=== PATIENT | female | born 1945 | race Caucasian/White ===

== ENCOUNTER 2020-05-29 10:24 | Outpatient (CLI) | payer MEDICARE, SELFPAY ==
--- NOTE | ~2020-05-29 | XR_ITS ---
XR knee LT 2V 05/29/2020 10:53 Indication: Left knee pain Procedure: 2 views left knee Comparison: 03/04/2019 Findings: Severe osteoarthritis of the left knee. No fracture or traumatic malalignment. Small joint effusion. No foreign bodies. Extensive vascular calcifications. Impression: 1: Severe osteoarthritis of the left knee. Reviewed, dictated and finalized at location B. IDE INDUSTRIAL SALES REPRESENTATIVE Impression: 1: Severe osteoarthritis of the left knee.
== END 2020-05-29 10:25 ==
PROVIDERS: PCP Family Medicine; Visit Provider Nurse Practitioner Family
DX: M25.562 Pain in left knee (principal); M17.12 Unilateral primary osteoarthritis, left knee
CPT/HCPCS: 73560

== ENCOUNTER 2021-05-25 15:53 | Outpatient (CLI) | payer MEDICARE, SELFPAY ==
--- NOTE | ~2021-05-25 | XR_ITS ---
EXAMINATION: XR knee LT min 4V DATE: 05/25/2021 16:28 INDICATION: Chronic left knee pain. TECHNIQUE: 4 views of left knee were obtained. COMPARISON: Left knee radiographs 05/29/2020 FINDINGS: Bone alignment is normal. No fracture. There is severe osteoarthritis of medial compartment and mild osteoarthritis of lateral and patellofemoral compartments. There is a moderate-sized knee j oint effusion. IMPRESSION: 1. Severe left knee osteoarthritis. 2. Moderate-sized left knee joint effusion. Reviewed, dictated and finalized at location A. ATOR
== END 2021-05-25 15:54 | disposition home or self-care (01) ==
LOC: ANHIMG 16:02
PROVIDERS: PCP Family Medicine; Visit Provider Nurse Practitioner Family
DX: M25.562 Pain in left knee (principal); M17.12 Unilateral primary osteoarthritis, left knee; M25.462 Effusion, left knee
CPT/HCPCS: 73564

== ENCOUNTER 2023-04-07 10:35 | Outpatient (CLI) | payer MEDICARE, SELFPAY ==
--- NOTE | ~2023-04-07 | US_ITS ---
EXAMINATION: US venous doppler LE RT DATE: 04/07/2023 11:15 INDICATION: Right lower limb pain TECHNIQUE: Laws scale images without and with compression and Doppler images of the right lower extre mity veins were obtained. COMPARISON: 04/26/2017 FINDINGS: The right common femoral vein, profunda femoral vein, femoral vein, popliteal vein, peronea l trunk, posterior tibial veins, and greater saphenous vein are patent. IMPRESSION: 1. Patent right lower extremity veins. No evidence of deep venous thrombosis. Reviewed, dictated and finalized at location B.
[2023-04-07 11:52] LABS: Basophils Absolute Auto 0.1 K/mm3 (0.0-0.1); Basophils Percent Auto 0.8 % (0.2-1.2); Eosinophils Absolute Auto 0.3 K/mm3 (0-0.3); Eosinophils Percent Auto 5.4 % (0-4.4); Hematocrit 37.4 % (37.0-47.0); Hemoglobin 11.5 g/dL (12.0-15.0); Immature Granulocyte Absolute 0.02 K/mm3 (0.00-0.031); Immature Granulocyte Percent A 0.3 % (0-0.5); Lymphocytes Absolute Auto 1.52 K/mm3 (0.9-3.2); Lymphocytes Percent Auto 24.4 % (18.3-44.2); Mean Corpuscular HGB Conc 30.7 g/dl (32-36); Mean Corpuscular Hemoglobin 30.2 pg (26-34); Mean Corpuscular Volume 98.2 fl (80-100); Mean Platelet Volume 9.8 fl (7.4-10.4); Monocytes Absolute Auto 0.4 K/mm3 (0.1-0.6); Monocytes Percent Auto 6.7 % (2.6-8.5); Neutrophils Absolute Auto 3.9 K/mm3 (1.3-6.7); Neutrophils Percent Auto 62.4 % (45.5-73.1); Platelet Count Result 187 k/mm3 (150-375); Red Blood Count 3.81 M/mm3 (4.2-5.4); Red Cell Distribution Width 13.6 % (11.5-14.5); White Blood Count 6.2 K/mm3 (4.5-10.0)
[2023-04-07 11:56] LABS: INR 1.2; Prothrombin Time 15.7 Seconds (11.1-14.7)
[2023-04-07 11:57] LABS: Partial Thromboplastin Time 27.9 SECONDS (22.3-36.8)
[2023-04-07 11:59] LABS: Alanine Aminotransferase 15 U/L (6-35); Albumin Level 4.4 g/dL (3.5-5.1); Alkaline Phosphatase 49 U/L (38-126); Anion Gap 8 mmol/L (8-16); Aspartate Amino Transferase 19 U/L (14-36); Bilirubin,Total 0.5 mg/dL (0.2-1.3); Blood Urea Nitrogen 25 mg/dL (7-17); Calcium 9.1 mg/dL (8.4-10.2); Carbon Dioxide 28 mmol/L (22-30); Chloride 103 mmol/L (98-107); Estimated Glomerular Filt Rate 34; Glucose 88 mg/dL (65-110); Potassium 4.3 mmol/L (3.4-5.0); Sodium 139 mmol/L (137-145)
[2023-04-07 13:08] LABS: D Dimer 0.31 ug/mL (<0.48)
== END 2023-04-07 10:36 | disposition home or self-care (01) ==
PROVIDERS: PCP Family Medicine; Visit Provider Nurse Practitioner Adult Health
DX: M79.661 Pain in right lower leg (principal); L53.9 Erythematous condition, unspecified
CPT/HCPCS: 36415; 80053; 85025; 85380; 85610; 85730; 93971

== ENCOUNTER 2024-08-14 07:27 | Inpatient (IN) | payer MEDICARE, MEDICAID, SELFPAY ==
[2024-08-14] VITALS (24 sets, daily range): BP systolic 118–176; BP diastolic 66–101; PULSE 71–110; RESP 18–37; TEMP 36.2–36.9; O2SAT 86–100; BMI 31.9; BMI 29.2
--- NOTE | ~2024-08-14 | XR_ITS ---
XR chest 1V portable 08/14/2024 08:05 Indication: Shortness of breath Procedure: AP portable chest Comparison: 05/03/2018 Findings: Cardiomegaly with pulmonary edema. Small pleural effusions. No pneumothorax. There is ather osclerosis of the aorta. Impression: 1: Cardiomegaly with pulmonary edema. Reviewed, dictated and finalized at location B. C S S REPRESENTATIVE Impression: 1: Cardiomegaly with pulmonary edema.
--- NOTE | 2024-08-14 07:29 | ECG_ITS ---
Test Date: 2024-08-14 07:39:05 Measurements Intervals [place] Rate: 86 P: 77 WY: 226 QRS: 32 QRSD: 94 T: 49 QT: 368 QTc: 441 Interpretive Statements SINUS RHYTHM WITH FIRST DEGREE AV BLOCK WITH ATRIAL AND VENTRICULAR PREMATURE COMPLEXES LOW QRS VOLTAGE IN PRECORDIAL LEADS BASELINE ARTIFACT- I, II, III, AVR, AVL, AVF, V1-V6 BORDERLINE ECG No previous ECG available for comparison Electronically Signed On 08-14-2024 08:18:15 NUCLEAR FUELS RESEARCH ENGINEER by Dawit Daniels D.O.
[2024-08-14 07:45] LABS: Alveolar/Arterial O2 Gradient 156.8 mmHg; Base Excess ABG -3.3 mEq/l (+/-2.0); Fractional Inspired Oxygen 40 %; HCO3 ABG 23.7 mEq/l (22.0-26.0); Methemoglobin ABG 0.2 %THb (0-1.5); Oxygen Content ABG 16.4 %vol (16.0-22.0); Oxygen Saturation ABG 91.9 % (95.0-100.0); Oxyhemoglobin 90.7 % THb (90.0-100.0); PCO2 ABG 50.8 mmHg (35.0-45.0); PO2 FiO2 Ratio Arterial Blood 1.75 %; Reduced Hemoglobin 8.1 %THb (0-5.0); Total Hemoglobin 12.8 g/dL (12.0-18.0)
[2024-08-14 07:46] LABS: Device NON-INVASIVE VENT; Modified Allen's Test Pass; Site Drawn LEFT RADIAL; pH ABG 7.287 (7.350-7.450)
[2024-08-14 07:47] LABS: Non-Invasive Expiratory Pressure 8 CMH2O; Non-Invasive Inspiratory Pressure 16 CMH2O; Non-Invasive Vent Rate 14 /MIN
[2024-08-14] MEDS: ALBUTEROL SULFATE NEB 2.5 MG/3 ML INH 10 MG INHALATION (07:50)
[2024-08-14] MEDS: IPRATROPIUM BR 0.02% INH SOLN 0.5 MG/2.5 ML VIAL 1 MG INHALATION (07:51)
--- NOTE | 2024-08-14 07:59 | ED_ITS ---
HPI - General Adult General Chief complaint: Shortness of Breath/Dyspnea Stated complaint: Resp distress History of Present Illness HPI narrative: Patient is a 79-year-old female with history of COPD who presents ER with shortness of breath. Worsening over last couple days associated with cough and wheezing. No fevers or chills. Hypoxic in the 80s and placed on CPAP by EMS. Patient feels improved at this time on BiPAP in the room. No known sick contacts. Denies history of heart failure though it is listed in her history. Related Data Home Medications ?Medication ?Instructions ?Recorded ?Confirmed ?Last Taken ?Type albuterol sulfate 90 mcg/actuation 2 puff inhalation PRN 08/14/24 08/14/24 08/13/24 History aerosol inhaler apixaban 5 mg tablet (Eliquis) 5 mg PO DAILY 08/14/24 08/14/24 08/13/24 History atorvastatin 80 mg tablet 80 mg PO QPM 08/14/24 08/14/24 08/13/24 History bupropion HCl 300 mg 24 hr tablet, 300 mg PO DAILY 08/14/24 08/14/24 08/13/24 History extended release clopidogrel 75 mg tablet 75 mg PO DAILY 08/14/24 08/14/24 08/13/24 History enalapril maleate 20 mg tablet 20 mg PO DAILY 08/14/24 08/14/24 08/13/24 History furosemide 40 mg tablet 40 mg PO DAILY 08/14/24 08/14/24 08/13/24 History glimepiride 2 mg tablet 2 mg PO DAILY 08/14/24 08/14/24 08/13/24 History hydrocodone 5 mg-acetaminophen 325 1 tablet PO PRN PRN pain 08/14/24 08/14/24 08/13/24 History mg tablet hydroxyzine HCl 25 mg tablet 25 mg PO DAILY 08/14/24 08/14/24 08/13/24 History isosorbide mononitrate 30 mg 30 mg PO DAILY 08/14/24 08/14/24 08/13/24 History tablet,extended release 24 hr loperamide 2 mg capsule 2 mg PO PRN 08/14/24 08/14/24 Unknown History nifedipine 30 mg tablet,extended 30 mg PO DAILY 08/14/24 08/14/24 08/13/24 History release 24 hr pantoprazole 40 mg tablet,delayed 40 mg PO DAILY 08/14/24 08/14/24 08/13/24 History release sertraline 100 mg tablet 100 mg PO Q24H 08/14/24 08/14/24 08/13/24 History Allergies Allergy/AdvReac Type Severity Reaction Status Date / Time No Known Allergies Allergy Verified 08/14/24 08:06 Review of Systems 2 Review of Systems: All systems reviewed & are unremarkable except as noted in HPI and below Constitutional: Constitutional: Reports no additional constitutional complaints ENT: Reports system reviewed and no additional complaints, except as documented Cardiovascular: Cardiovascular: Reports no additional cardiovascular complaints Respiratory: Respiratory: Reports no additional respiratory complaints [facility] Past Medical History Medical History (Updated 08/15/24 @ 09:25 by Giacomo Jones MD) Chronic obstructive pulmonary disease Chronic respiratory failure with hypoxia, on home oxygen therapy Congestive heart failure Type 2 diabetes mellitus Obstructive sleep apnea Coronary artery disease Hypertension Myocardial infarct Surgical History Surgical History (Updated 08/14/24 @ 21:33 by Regina Saul PA-C) History of intravascular stent placement bilateral lower extremities History of coronary artery stent placement Social History Social History (Updated 08/14/24 @ 21:33 by Regina Saul PA-C) Social History: Surrogate medical decision maker: Prachi Murphy, daughter. Code status: Full code. Smoking status: Former smoker Tobacco type: cigarettes Smoking end date: 06/26/17 Alcohol intake: never Substance use: never Substance use type: does not use Do You Feel Safe in your Home?: Yes Lack of Transportation: No Lack of Food: Never True Current Housing: I Have Housing Concerned About Future Housing: No Difficulty Paying Gas/Electric Bills: No Difficulty Paying for Meds: No Currently Unemployed: No Education: High School Diploma/GED Difficulty w/ Childcare or Family Care: No Spiritual care concerns: No Exam 2 Narrative: GENERAL: Ill-appearing, well-nourished, and in no acute distress. HEAD: Normocephalic, atraumatic. ENT: Mucous membranes moist. CHEST: Rales bilaterally. No respiratory distress. HEART: Regular rate and rhythm. Normal peripheral pulses. ABDOMEN: Soft, nontender, nondistended. EXTREMITIES: Normal range of motion. No edema. SKIN: Warm, dry, no rash. NEURO: Alert and oriented x3. PSYCH: Normal mood and affect. Course Course Emergency Course: Feels better with BiPAP. Diuresis ordered. Admit to hospitalist service. Vital Signs Vital signs: Vital Signs Temperature 97.2 F L 08/14/24 07:25 Pulse Rate 88 08/14/24 07:25 Respiratory Rate 37 H 08/14/24 07:25 Blood Pressure 176/101 H 08/14/24 07:25 Pulse Oximetry 86 L 08/14/24 07:25 Oxygen Delivery CPAP 08/14/24 07:25 Temperature 98.9 F 08/15/24 08:09 Pulse Rate 95 08/15/24 08:56 Respiratory Rate 20 08/15/24 08:56 Blood Pressure 165/85 H 08/15/24 08:09 Pulse Oximetry 95 08/15/24 08:46 Oxygen Delivery Nasal Cannula 08/15/24 08:46 Oxygen Flow Rate 2 08/15/24 08:46 Fraction of Inspired Oxygen 40 08/14/24 14:00 Medical Decision Making Vital Signs Vital Signs: Vital Signs Temperature 97.2 F L 08/14/24 07:25 Pulse Rate 88 08/14/24 07:25 Respiratory Rate 37 H 08/14/24 07:25 Blood Pressure 176/101 H 08/14/24 07:25 Pulse Oximetry 86 L 08/14/24 07:25 Oxygen Delivery CPAP 08/14/24 07:25 Temperature 98.9 F 08/15/24 08:09 Pulse Rate 95 08/15/24 08:56 Respiratory Rate 20 08/15/24 08:56 Blood Pressure 165/85 H 08/15/24 08:09 Pulse Oximetry 95 08/15/24 08:46 Oxygen Delivery Nasal Cannula 08/15/24 08:46 Oxygen Flow Rate 2 08/15/24 08:46 Fraction of Inspired Oxygen 40 08/14/24 14:00 Lab Data 08/15/24 04:44 08/15/24 04:44 Labs: Lab Results 08/14/24 08/14/24 08/14/24 Range/Units 07:35 07:56 07:58 WBC 16.6 H (4.5-10.0) K/mm3 RBC 4.17 L (4.2-5.4) M/mm3 Hgb 12.1 (12.0-15.0) g/dL Hct 40.0 (37.0-47.0) % MCV 95.9 (80-100) fl MCH 29.0 (26-34) pg MCHC 30.3 L (32-36) g/dl RDW 14.5 (11.5-14.5) % Plt Count 255 (150-375) k/mm3 MPV 10.2 (7.4-10.4) fl Immature Gran % (Auto) 0.5 (0-0.5) % Neut % (Auto) 88.3 H (45.5-73.1) % Lymph % (Auto) 5.8 L (18.3-44.2) % [place] % (Auto) 4.1 (2.6-8.5) % Eos % (Auto) 0.8 (0-4.4) % Baso % (Auto) 0.5 (0.2-1.2) % Lymph # (Auto) 0.96 (0.9-3.2) K/mm3 [place] # (Auto) 0.7 H (0.1-0.6) K/mm3 Eos # (Auto) 0.1 (0-0.3) K/mm3 Baso # (Auto) 0.1 (0.0-0.1) K/mm3 Abs Immat Gran (auto) 0.08 H (0.00-0.031) K/mm3 Absolute Neuts (auto) 14.6 H (1.3-6.7) K/mm3 Absolute Nucleated RBC 0.000 (0.0-0.012) K/mm3 Nucleated RBC % 0.0 (0.0-0.2) % Methemoglobin 0.2 (0-1.5) %THb Expiratory Pressure 8 CMH2O Inspiratory Pressure 16 CMH2O Sodium 142 (137-145) mmol/L Potassium 3.8 (3.4-5.0) mmol/L Chloride 105 (98-107) mmol/L Carbon Dioxide 25 (22-30) mmol/L Anion Gap 12 (4-12) mmol/L BUN 19 H (7-17) mg/dL Creatinine 1.00 (0.7-1.0) mg/dL Estim Creat Clear Calc 49 ml/min Estimated GFR 54 L (59 - ) Glucose 271 H (65-110) mg/dL Calcium 9.3 (8.4-10.2) mg/dL Total Bilirubin 1.1 (0.2-1.3) mg/dL AST 20 (14-36) U/L ALT 15 (6-35) U/L Alkaline Phosphatase 80 (38-126) U/L NT-Pro-B Natriuret Pep 3560 H (19.9-100) pg/mL Total Protein 7.0 (6.3-8.2) g/dL Albumin 4.3 (3.5-5.1) g/dL Influenza A (RT-PCR) Negative (Negative) Influenza B (RT-PCR) Negative (Negative) RSV (RT-PCR) Negative (Negative) SARS-CoV-2 RNA (RT-PCR) Negative (Negative) ABG Data ABG results: 08/14/24 07:35 Puncture Site Left radial ABG pH 7.287 L* ABG pCO2 50.8 H ABG pO2 70.0 L ABG PO2/FiO2 Ratio 1.75 ABG HCO3 23.7 ABG O2 Saturation 91.9 L ABG O2 Content 16.4 ABG Base Excess -3.3 A-a Gradient 156.8 Oxyhemoglobin 90.7 Carboxyhemoglobin 1.0 Reduced Hemoglobin 8.1 H Total Hemoglobin 12.8 O2 Delivery Device Non-invasive vent O2 Liters/Min Not Reportable Vent Rate 14 FiO2 40 Imaging Data Radiologist's impression: ITS Impressions Chest X-Ray 08/14/24 08:05 Impression: 1: Cardiomegaly with pulmonary edema. Critical Care Time Critical Care Time Critical Care Time: Yes Total Critical Care Time: 35 Discharge Plan Discharge Clinical Impression: Congestive heart failure, Acute respiratory failure Patient Disposition: Still a Patient Condition: Stable
[2024-08-14 08:02] LABS: Basophils Absolute Auto 0.1 K/mm3 (0.0-0.1); Basophils Percent Auto 0.5 % (0.2-1.2); Eosinophils Absolute Auto 0.1 K/mm3 (0-0.3); Eosinophils Percent Auto 0.8 % (0-4.4); Hemoglobin 12.1 g/dL (12.0-15.0); Immature Granulocyte Absolute 0.08 K/mm3 (0.00-0.031); Immature Granulocyte Percent A 0.5 % (0-0.5); Lymphocytes Absolute Auto 0.96 K/mm3 (0.9-3.2); Lymphocytes Percent Auto 5.8 % (18.3-44.2); Mean Corpuscular HGB Conc 30.3 g/dl (32-36); Mean Corpuscular Volume 95.9 fl (80-100); Mean Platelet Volume 10.2 fl (7.4-10.4); Monocytes Absolute Auto 0.7 K/mm3 (0.1-0.6); Monocytes Percent Auto 4.1 % (2.6-8.5); Neutrophils Absolute Auto 14.6 K/mm3 (1.3-6.7); Neutrophils Percent Auto 88.3 % (45.5-73.1); Platelet Count Result 255 k/mm3 (150-375); Red Blood Count 4.17 M/mm3 (4.2-5.4); Red Cell Distribution Width 14.5 % (11.5-14.5); White Blood Count 16.6 K/mm3 (4.5-10.0)
--- OUTSIDE RECORDS SUMMARY | 2024-08-14 08:07 | XMS_ITS | Encounter Summary ---
Author Organization [facility] Healthcare Address [address] [place] [address] Care Team Providers Care Senior Core Java Developer Name Role Phone Ron Booth MD Primary Care Provider [phone] Encounter Details Date Type Department Care Team (Late st Contact Info) Description 05/12/2023 Telephone [facility] Radiology [address] [place] [address] Desean Duval RN Social History Tobacco Use Types Packs/Day Years Used Date Smoking Tobacco: Former Cigarettes 1 52 2017 Smokeless Tobacco: Never Alcohol Use Standard Drinks/Week Comments No 0 (1 standard drink = 0.6 oz pur e alcohol) AUDIT-C Answer Date Recorded Q1: How often do you have a drink containing alcohol? Never 01/13/2022 Q2: How many drinks containi ng alcohol do you have on a typical day when you are drinking? Patient does not drink Frequency of Binge Drinking Not on file 12/25 Comments No Sex and Gender Information Value Date Recorded Sex Assigned at Not on file Legal Sex Female 7:40 AM CDT Gender Identity Not on file Sexual Orientation Not on file documented as of this encounter Plan of Treatment Not on file documented as of this encounter Visit Diagnoses Not on filedocumented in this encounter Care Teams Senior Core Java Developer Relationship Specialty Start Date End Date Ron Booth MD PCP - General 03/30/17 documented as of this encounter
--- OUTSIDE RECORDS SUMMARY | 2024-08-14 08:07 | XMS_ITS | Referral Summary ---
Author Organization [facility] Address [address] [place] [address] Care Team Providers Care Pattern Maker Programer Name Role Phone Unavailable Primary Care Provider Unavailabl e Source Comments [facility],non-owned Affiliates and Associated Physician Practices is amultiple site organization consisting of ambulatory clinics and hospital sitesin [place], [place], [place] and [place]. This disclosure is being madepursuant to the Care Everywhere program and may not contain all information available regarding this patient. Last updated 18.[employer] [facility] Allergies No known active allergies Medications * Be aware that medications may not be up to date on this document. Alwaysverify current medications with the patient. Medication Sig Dispensed Refills Start Date End Date Status apixaban (ELIQUIS) 5 MG tablet Eliquis 5 mg tablet Acti ve atorvastatin (LIPITOR) 80 MG tablet atorvastatin 80 mg tablet Active buPROPion XL 24hr (WELLBUTRIN-XL) 300 MG tablet bupropion HCl XL 300 mg 24 hr tablet, extended release Active carvedilol (COREG) 12.5 MG tablet Take 12.5 mg by mouth 2 times daily Active clopidogrel (PLAVIX) 75 MG tablet clopidogrel 75 mg tablet Active diphenhydrAMINE (BENADRYL) 25 MG capsule Take 25 mg by mouth Activ e vitamin D, ergocalciferol, (DRISDOL) 1.25 mg (50,000 UT) capsule 02/01/2021 Active furosemide (LASIX) 40 MG tablet Take 40 mg by mouth every morning 07/26/2021 Active gabapentin (NEURONTIN) 600 MG tablet gabapentin 600 mg tablet Active glipiZIDE CR 24hr (GLUCOTROL XL) 2.5 MG tablet 07/13/2021 Active hydrOXYzine HCl (ATARAX) 25 MG tablet TAKE 2 TABLETS BY MOUTH EVERY SIX HOURS NEEDED 08/11/2021 Active melatonin 3 MG tablet Active metFORMIN (GLUCOPHAGE) 500 MG tablet 04/16/2021 Active omeprazole (PRILOSEC) 20 MG capsule omeprazole 20 mg capsule,delayed release Active potassium chloride ER (KLOR-CON M) 20 MEQ tablet potassium chloride ER 20 mEq tablet,extended release(part/cryst) Active quinapril (ACCUPRIL) 20 MG tablet Take 20 mg by mouth once daily Active sertraline (ZOLOFT) 50 MG tablet Take 100 mg by mouth once daily 08/11/2021 Active spironolactone (ALDACTONE) 25 MG tablet spironolactone 25 mg tablet 02/01/2021 Active traMADol (ULTRAM) 50 MG tablet 04/13/2021 Active Active Problems Problem Noted Date Diagnosed Date Osteoarthritis of multiple joints 08/25/2021 Class 1 obesity due to exces s calories without serious comorbidity with body mass index (BMI) of 31.0 to 31.9 in adult 08/25/2021 Type 2 diabetes mellitus 08/25/2021 Primary hypertension 08/25/2021 CKD (chronic kidney disease) 08/25/2021 Social History Tobacco Use Types Packs/Day Years Used Date Smoking Tobacco: Former Smokeless Tobacco: Never Alcohol Use Standard Drinks/Week Comments Never 0 (1 standard drink = 0.6 oz pur e alcohol) PHQ-2 Answer Date Recorded PHQ2 TOTAL SCORE 6 08/25/2021 Sex and Gender Information Value Date Recorded Sex Assigned at Not on file Gender Identity Not on file Sexual Orientation Not on file Last Filed Vital Signs Vital Sign Reading Time Taken Comments Blood Pressure 132/70 08/25/2021 9:22 AM MARKET REPORTER Pulse - - Temperature 36.7 C (98.1 F) 08/25/2021 9:22 AM MARKET REPORTER Respiratory Rate - - Oxygen Saturation - - Inhaled Oxygen Concentration - - Weight 80 kg (176 lb 6 oz) 08/25/2021 9:22 AM CS T Height 160 cm (5' 3 ) 08/25/2021 9:22 AM MARKET REPORTER Body Mass Index 31.24 08/25/2021 9:22 AM MARKET REPORTER Plan of Treatment Not on file
--- OUTSIDE RECORDS SUMMARY | 2024-08-14 08:07 | XMS_ITS | Clinical Summary ---
Author Organization [facility] Address [address] [place] [address] Care Team Providers Care Remodeler Name Role Phone Unavailable Primary Care Provider Unavailabl e Source Comments [facility],non-owned Affiliates and Associated Physician Practices is amultiple site organization consisting of ambulatory clinics and hospital sitesin [place], [place], [place] and [place]. This disclosure is being madepursuant to the Care Everywhere program and may not contain all information available regarding this patient. Last updated 18.[employer] Allergies No known active allergies Medications * [...] hypertension 08/25/2021 CKD (chronic kidney disease) 08/25/2021 Family History Medical History Relation Name Comments Diabetes; unknown type Father Diabetes; unknown type Maternal Grandmother Diabetes; unknown type Mother Other Mother kidney disease Relation Name Status Comments Father Maternal Grandmother Mother Social History Tobacco Use Types Packs/Day Years [...] Comments Blood Pressure 132/70 08/25/2021 9:22 AM SOLAR PROJECT COORDINATION SPECIALIST Pulse - - Temperature 36.7 C (98.1 F) 08/25/2021 9:22 AM SOLAR PROJECT COORDINATION SPECIALIST Respiratory Rate - - Oxygen Saturation - - Inhaled Oxygen Concentration - - Weight 80 kg (176 lb 6 oz) 08/25/2021 9:22 AM CS T Height 160 cm (5' 3 ) 08/25/2021 9:22 AM SOLAR PROJECT COORDINATION SPECIALIST Body Mass Index 31.24 08/25/2021 9:22 AM SOLAR PROJECT COORDINATION SPECIALIST Plan of Treatment Health Maintenance Due Date Last Done Comments BONE DENSITY TESTING 1945 HEPATITIS C SCREENING 07/22/1965 DIABETES-SERUM CREATININE 1965 DTAP/TDAP/TD VACCINES (1 - Tdap) 1966 PNEUMOCOCCAL VACCINE 50+ (1 of 2 - PCV) 1966 ZOSTER VACCINE (1 of 2) 1997 DIABETES RETINOPATHY SCREENING 08/25/2021 DIABETES-FOOT EXAM WITH MONOFILAMENT 08/25/2021 DIABETES-HGB A1C 08/25/2021 Respiratory Syncytial Virus (RSV) Vaccine Pt: or over 60 yrs (1 - 1-dose 75+ series) 2022 COVID-19 VACCINE ( - 2023-2 5 season) 2024 INFLUENZA VACCINE (#1) 2024 03/20/2018 DEPRESSION SCREENING 06/26/2024 DIABETES - URINE PROTEIN SCREENING 06/26/2024 HEPATITIS B VACCINE Aged Out No longe r eligible based on patient's age to complete this topic HIB VACCINE Aged Out No longer eligi ble based on patient's age to complete this topic HPV VACCINE Aged Out No longer eligi ble based on patient's age to complete this topic MENINGOCOCCAL (Group B) VACCINE Aged Out No longer eligible based on patient's age to complete this topic MENINGOCOCCAL VACCINE Aged Out No sofy jenny eligible based on patient's age to complete this topic
--- OUTSIDE RECORDS SUMMARY | 2024-08-14 08:07 | XMS_ITS | Patient Health Summary ---
Author Organization [facility] Address [address] [place] [address] Care Team Providers Care Real Estate Sales Supervisor Name Role Phone Unavailable Primary Care Provider Unavailabl e Note from [facility],non-owned Affiliates and Associated Physician Practices is amultiple site organization consisting of ambulatory clinics and hospital sitesin [place], [place], [place] and [place]. This disclosure is being madepursuant to the Care Everywhere program and may not contain all information available regarding this patient. Last updated 18.[facility] Allergies No known active allergies Medications * Be aware that medications may not be up to date on this document. Alwaysverify current medications with the patient. * apixaban (ELIQUIS) 5 MG tablet Eliquis 5 mg tablet * atorvastatin (LIPITOR) 80 MG tablet atorvastatin 80 mg tablet * buPROPion XL 24hr (WELLBUTRIN-XL) 300 MG tablet bupropion HCl XL 300 mg 24 hr tablet, extended release * carvedilol (COREG) 12.5 MG tablet Take 12.5 mg by mouth 2 times daily * clopidogrel (PLAVIX) 75 MG tablet clopidogrel 75 mg tablet * diphenhydrAMINE (BENADRYL) 25 MG capsule Take 25 mg by mouth * vitamin D, ergocalciferol, (DRISDOL) 1.25 mg (50,000 UT) capsule(Started 02/01/2021) * furosemide (LASIX) 40 MG tablet(Started 07/26/2021) Take 40 mg by mouth every morning * gabapentin (NEURONTIN) 600 MG tablet gabapentin 600 mg tablet * glipiZIDE CR 24hr (GLUCOTROL XL) 2.5 MG tablet(Started 07/13/2021) * hydrOXYzine HCl (ATARAX) 25 MG tablet(Started 08/11/2021) TAKE 2 TABLETS BY MOUTH EVERY SIX HOURS NEEDED * melatonin 3 MG tablet * metFORMIN (GLUCOPHAGE) 500 MG tablet(Started 04/16/2021) * omeprazole (PRILOSEC) 20 MG capsule omeprazole 20 mg capsule,delayed release * potassium chloride ER (KLOR-CON M) 20 MEQ tablet potassium chloride ER 20 mEq tablet,extended release(part/cryst) * quinapril (ACCUPRIL) 20 MG tablet Take 20 mg by mouth once daily * sertraline (ZOLOFT) 50 MG tablet(Started 08/11/2021) Take 100 mg by mouth once daily * spironolactone (ALDACTONE) 25 MG tablet(Started 02/01/2021) spironolactone 25 mg tablet * traMADol (ULTRAM) 50 MG tablet(Started 04/13/2021) Active Problems Problem Noted Date Diagnosed Date [...] Comments Blood Pressure 132/70 08/25/2021 9:22 AM HYSTER DRIVER Pulse - - Temperature 36.7 C (98.1 F) 08/25/2021 9:22 AM HYSTER DRIVER Respiratory Rate - - Oxygen Saturation - - Inhaled Oxygen Concentration - - Weight 80 kg (176 lb 6 oz) 08/25/2021 9:22 AM CS T Height 160 cm (5' 3 ) 08/25/2021 9:22 AM HYSTER DRIVER Body Mass Index 31.24 08/25/2021 9:22 AM HYSTER DRIVER
--- OUTSIDE RECORDS SUMMARY | 2024-08-14 08:07 | XMS_ITS | Encounter Summary ---
Author Organization [facility] Address [address] [place] [address] Phone Care Team Providers Care Hopper Attendant Name Role Phone Ron Booth MD Primary Care Provider Encounter Details Date Type Department Care Team (Latest Contact Info) Description 08/07/2019 Orders Only [facility] Scanning, Provider Social History Tobacco Use Types Packs/Day Years Used Date Smoking Tobacco: Former Cigarettes 1 50 Smokeless Tobacco: Never Alcohol Use Standard Drinks/Week Comments No 0 (1 standard drink = 0.6 oz pur e alcohol) Comments No Sex and Gender Information Value Date Recorded Sex Assigned at Not on file Legal Sex Female 7:40 AM CDT Gender Identity Not on file Sexual Orientation Not on file documented as of this encounter Plan of Treatment Not on file documented as of this encounter Procedures Procedure Name Priority Date/Time Associated Diagnosis Comments SCAN - LABS 08/07/2019 documented in this encounter Results * SCAN - LABS (08/07/2019) us Provider Scanning Final Result documented in this encounter Visit Diagnoses Not on filedocumented in this encounter Care Teams Hopper Attendant Relationship Specialty Start Date End Date Ron Booth MD PCP - General 10/5/17 documented as of this encounter
--- OUTSIDE RECORDS SUMMARY | 2024-08-14 08:07 | XMS_ITS | Encounter Summary ---
Author Organization [facility] Address [address] [place] [address] Phone Care Team Providers Care Engine Lathe Set Up Operator Name Role Phone Ron Booth MD Primary Care Provider Encounter Details Date Type Department Care Team (Latest Contact Info) Description 04/08/2021 Orders Only [facility] Stacy Wooten, [place] [address] [facility] [address] [place], [place] [id number] Social History Tobacco Use Types Packs/Day Years [...] Date/Time Associated Diagnosis Comments SCAN - LABS 04/08/2021 documented in this encounter Results * SCAN - LABS (04/08/2021) Stacy Wooten RN Final Result documented in this encounter Visit Diagnoses Not on filedocumented in this encounter Care Teams Engine Lathe Set Up Operator Relationship Specialty Start Date End Date Ron Booth MD PCP - General 03/30/17 documented as of this encounter
--- OUTSIDE RECORDS SUMMARY | 2024-08-14 08:08 | XMS_ITS | Referral Summary ---
Author Organization [facility] [address] Address [address] [place] [address] Care Team Providers Care Multiple Drum Sander Name Role Phone Ron Booth MD Primary Care Provider Allergies No known active allergies Medications atorvastatin (LIPITOR) 80 mg tablet Take 1 tablet (80 mg total) by mouth daily. 60 tablet 8 Active Additional Information Patient taking differently:80 mg oralEvery morning, Indications: hyperlipidemia, Informant: Self, Reported on 01/04/2022 clopidogrel (PLAVIX) 75 mg tablet Take 1 tablet (75 mg total) by mouth daily. 60 tablet 8 Active Additional Information Patient taking differently:75 mg oralEvery morning, Informant: Self, Reported on 01/13/2022 ELIQUIS 5 mg tabletIndication s:atrial fibrillation Take 1 tablet (5 mg total) by mouth 2 (two) times a day 0 8 Active omeprazole (PriLOSEC) 20 mg capsuleIndicatio ns:Treatment of Non-Bleeding Gastric Disorder Take 1 capsule (20 mg total) by mouth daily with lunch Active buPROPion XL (WELLBUTRIN XL) 300 mg 24 hr tabletIndication s:Anxiety with Depression Take 1 tablet (300 mg total) by mouth every morning Active ferrous sulfate 325 mg (65 mg of elemental iron) tabletIndication s:Iron Deficiency Anemia Take 1 tablet (325 mg total) by mouth daily with breakfast 0 Active quinapriL (ACCUPRIL) 20 mg tabletIndication s:hypertension Take 1 tablet (20 mg total) by mouth every morning Active metFORMIN (GLUCOPHAGE) 500 mg tabletIndication s:type 2 diabetes mellitus Take 1 tablet (500 mg total) by mouth 2 (two) times a day with meals 1 Active carvediloL (COREG) 25 mg tablet TAKE 1 TABLET BY MOUTH TWICE DAILY WITH FOOD 180 tablet 2 Active Additional Information Patient taking differently: 25 mg 2 times daily with meals (bkfst, dinner), Informant: Self, Reported on 05/10/2023 LORazepam (ATIVAN) 0.5 mg tabletIndication s:anxiety Take 1 tablet (0.5 mg total) by mouth 2 (two) times a day Active NIFEdipine (PROCARDIA XL/ADALAT CC) 30 mg 24 hr tablet Take 1 tablet (30 mg total) by mouth every morning Active albuterol HFA (PROVENTIL HFA,VENTOLIN HFA,PROAIR HFA) 90 mcg/actuation inhalerIndicatio ns:Chronic Obstructive Pulmonary Disease Inhale 2 puffs every 6 (six) hours as needed for wheezing Active mometasone-formo terol (DULERA 200) 200-5 mcg/actuation inhalerIndicatio ns:Bronchospasm Prevention with COPD Inhale 2 puffs 2 (two) times a day Rinse mouth with water after use. Do not swallow. Active HYDROcodone-acet aminophen (NORCO) 5-325 mg per tabletIndication s:Pain,knee pain Take 1 tablet by mouth every 8 (eight) hours as needed for pain Active glipiZIDE XL (GLUCOTROL XL) 2.5 mg 24 hr tabletIndication s:type 2 diabetes mellitus Take 1 tablet (2.5 mg total) by mouth every morning 2 Active Atrovent HFA 17 mcg/actuation inhalerIndicatio ns:Bronchospasm Prevention with COPD Inhale 2 puffs 4 (four) times a day 2 Active aspirin 81 mg chewable tablet Take 1 tablet (81 mg total) by mouth daily 90 tablet 3 2 Active Farxiga 10 mg tablet Take 1 tablet (10 mg total) by mouth every morning 3 Active enalapril (VASOTEC) 20 mg tablet Take 2 tablets (40 mg total) by mouth every morning 3 Active gabapentin (NEURONTIN) 300 mg capsule Take 1 capsule (300 mg total) by mouth 3 (three) times a day 3 Active hydrOXYzine (ATARAX) 25 mg tablet 3 Active prednisoLONE acetate (PRED FORTE) 1 % ophthalmic suspension SHAKE LIQUID AND INSTILL 1 DROP IN LEFT EYE THREE TIMES DAILY FOR 7 DAYS DIRECTED 3 Active furosemide (LASIX) 40 mg tablet Take 1 tablet (40 mg total) by mouth daily 3 Active sertraline (ZOLOFT) 100 mg tablet 3 Active Active Problems Problem Noted Date Diagnosed Date Abnormal findings on cardiac catheterization Overview (12/22/2021): Added automatically from request for surgery [id number] Chest pain 12/08/2021 Overview (12/08/2021): Added automatically from request for surgery [id number] SOB (shortness of breath) on exertion 12/08/2021 Overview (12/08/2021): Added automatically from request for surgery [id number] CKD (chronic kidney disease) 08/25/2021 Osteoarthritis of multiple joints 08/25/2021 Primary hypertension 08/25/2021 Type 2 diabetes mellitus 08/25/2021 Coronary artery disease invo lving [place] coronary artery of [place] heart without angina pectoris 07/10/2018 Essential hypertension 05/15/2018 Mixed hyperlipidemia 05/15/2018 Elevated troponin 05/07/2018 CAD (coronary artery disease) 05/07/2018 Acute pulmonary edema (CMS/HCC) 05/04/2018 COPD (chronic obstructive pulmonary disease) 01/2018 COPD with acute exacerbation 05/03/2018 Type 2 diabetes mellitus wit hout complication, without long-term current use of insulin (CMS/HCC) 03/14/2018 Assessment & Plan (03/30/2018 11:19 AM CDT): - hold home glipizide and metformin - LDSSI - CC Diet Assessment & Plan (03/29/2018 12:06 AM CDT): Hold glipizide and metformin - SSI w/ accuchec Assessment & Plan (03/16/2018 3:39 PM CDT): A1C 6.1 01/2018, hold home metformin and glipizide -MDSSI, DM diet Assessment & Plan (03/14/2018 5:00 PM CDT): A1C 6.1 01/2018 -hold home metformin and glipizide -MDSSI, DM diet and accuchecks Acute respiratory failure wi th hypoxia and hypercapnia ([facility]) 03/14/2018 Overview (05/01/2023): Last Assessment & Plan: Likely multifactorial w/ CHF exacerbation and CAD w/ underlying COPD. Patient has had 2 recent admits w/ similar presentation and both required stents and IV diuresis and last admission treated for COPD exacerbation. CXR w/ pulm edema and exam w/ crackles and wheezing and NT-BNP 15,000 (8-9k last admissions). Breathing comfortably on RA now. BCx NGTD. Will hold on steroids/abx as patient w/ no fevers or cough/sputum - IV Lasix to net goal -1L - net goal of ~1L - scheduled duonebs - low salt diet, daily weights Demand ischemia 03/14/2018 Overview (05/01/2023): Last Assessment & Plan: -troponin 0.72 on arrival, peaked at 0.83 w/o acute ischemic changes on EKG, now downtrended to 0.76 -elevation likely 2/2 CHF/COPD exacerbation with low coronary reserve with high grade RCA and OM lesions -continue to trend, management of CAD per above Chronic combined systolic an d diastolic congestive heart failure (CMS/HCC) 02/17/2018 Assessment & Plan (03/30/2018 11:18 AM CDT): Ischemic; Likely c/t symptoms. EF 43% w/ grade III diastolic. - GDMT for CAD - Lasix diuresis - low salt diet, daily weights, strict I/Os - repeat TTE Assessment & Plan (03/29/2018 12:05 AM CDT): Ischemic; Likely c/t symptoms. EF 43% w/ grade III diastolic. - mgt as above Assessment & Plan (03/19/2018 10:53 PM CDT): TTE 01/2018: LVEF 40%, grade 2 DD, hypokinetic apex, inferolateral and anteroseptal regions -repeat TTE 03/14: 40%, grade 3 DD, hypokinetic apex, ischemic moderate MR, LAE -pBNP 8764 -Lasix 40 PO BID (from 40 IV BID); clinically euvolemic -continue home metoprolol tartrate 12.5 mg BID, lisinopril 20 mg daily (home quinapril 20 mg daily) -low salt diet, I/Os, daily weights, fluid restriction -decrease lasix to 40 PO daily and plan to discharge her on home regimen of 20 PO BID Assessment & Plan (03/15/2018 12:12 AM CDT): -presents with hypervolemia: CXR with edema/bilateral effusions, pBNP 8764, trace DEZ -TTE 01/2018: LVEF 40%, grade 2 DD, hypokinetic apex, inferolateral and anteroseptal regions -unclear etiology, likely component of reduced diuretic regimen at clinic visit and possible diet indiscretion with sodium consumption, no evidence of HTN urgency on review of OSH records -diuresis with Lasix 40 IV BID, goal net negative 1.5-2 L/24 hours -monitor I/Os, low salt diet -K>4, Mg>2 -continue lisinopril 20 mg daily, metoprolol tartrate 12.5 mg BID -repeat TTE 03/14: 40%, grade 3 DD, hypokinetic apex, ischemic moderate MR, LAE Assessment & Plan (02/20/2018 8:56 AM CDT): HFrEF, EF 35-40% at OSH - Lasix 40 mg IV BID decreased to 20 BID and now 20 PO BID for euvolemia on exam - TTE 02/16: pending read - Off supplemental O2 Assessment & Plan (02/17/2018 2:34 AM CDT): Likely 2/2 NSTEMI. Per report EF 35-40% at OSH. Continues to require supplemental O2 - f/u TTE here - lasix 40 mg IV bid Paroxysmal atrial fibrillation ([facility]) 018 Assessment & Plan (03/30/2018 11:19 AM CDT): NSR. DAPT. - continue Metop and DAPT Assessment & Plan (03/29/2018 12:08 AM CDT): NSR here; DAPT; triple therapy was discussed previously and decided to not to pursue - continue metop Assessment & Plan (02/20/2018 11:35 AM CDT): likely 2/2 HF, also with frequent atrial ectopy - Hold amiodarone (started at OSH) - Continue carvedilol 3.125 BID - Defer intermediate designer anticoagulation, CHADS2-VASC score 5 when in afib Assessment & Plan (02/17/2018 2:36 AM CDT): Likely 2/2 heart failure - HF now improved; will hold amio from OSH for now and monitor - on heparin gtt for NSTEMI now. Will require anticoagulation for CHADS2-VASC of 5 in the long run Acute on chronic diastolic c ongestive heart failure ([facility]) 02/17/2018 Overview (05/01/2023): Last Assessment & Plan: Ischemic; Likely c/t symptoms. EF 43% w/ grade III diastolic. - GDMT for CAD - Lasix diuresis - low salt diet, daily weights, strict I/Os - repeat TTE Atrial fibrillation with RVR ([facility]) 8 Overview (05/01/2023): Last Assessment & Plan: NSR. DAPT. - continue Metop and DAPT Back pain 02/16/2018 Assessment & Plan (03/14/2018 4:45 PM CDT): -chronic, continue home gabapentin, PRN Flexeril, PRN Percocet Assessment & Plan (02/17/2018 4:15 PM CDT): - Continue home gabapentin 600 tid, oxy/apap 5/325 Assessment & Plan (02/17/2018 2:30 AM CDT): Chronic back pain - continue home gabapentin 600 mg tid - oxy/apap 5-325 q6h prn Backache 02/16/2018 Overview (05/01/2023): Last Assessment & Plan: -chronic, continue home gabapentin, PRN Flexeril, PRN Percocet NSTEMI (non-ST elevated myocardial infarction) ( [facility]) 02/16/2018 Overview (05/01/2023): Last Assessment & Plan: - ASA 81, atorva 80, carvediolol 3.125 bid, started lisinopril 5 is on home quinapril 40 - Started plavix - Troponin trended down at OSH, uptrending here 7.21 -> 7.54 -> 7.99 -> 7.50 -> 7.89 -> 6.75 -> 5.89 -> 4.23 Last Assessment & Plan: trop .038-> .068-> 0.54. Multivessel disease in process of staged complex PCI w/ LAD and Lcx and OM1 completed. s/p PCI 03/29 for staged RCA intervention: DESx2 to mid/proximal RCA disease with R radial access. This is likely c/t initial symptomatology - continue asa, plavix, atorva, lisinopril, metoprolol Stenosis of right carotid artery 06/09/2017 Occlusion and stenosis of bilateral carotid renu angelita 06/06/2017 Resolved Problems Problem Noted Date Diagnosed Date Resolved Date High serum lactate 03/15/201803/17/201 8 Assessment & Plan (03/15/2018 4:15 PM CDT): lactate 4.5 on arrival, down to 2.5 overnight, not acidotic or hypotensive, CTM Assessment & Plan (03/15/2018 1:49 AM CDT): -lactate 4.5-->3.8-->2.5, pH 7.45 on ABG, normotensive and asymptomatic; not suggestive of hypoperfusion, CTM Demand ischemia 03/14/2018 05/15/2018 Assessment & Plan (03/15/2018 2:00 AM CDT): -troponin 0.72 on arrival, peaked at 0.83 w/o acute ischemic changes on EKG, now downtrended to 0.76 -elevation likely 2/2 CHF/COPD exacerbation with low coronary reserve with high grade RCA and OM lesions -continue to trend, management of CAD per above COPD exacerbation 03/14/2018 03/30/2018 Assessment & Plan (03/29/2018 12:05 AM CDT): Likely contributing - scheduled duonebs; holding on pred/abx as above for now Assessment & Plan (03/19/2018 10:56 PM CDT): increased sputum and cough prior to admission, no other infectious symptoms -azithromycin/prednisone 5 day course: 03/14-03/18 -continue home Anoro Ellipta -scheduled q6h DuoNebs. -denies any cough, SOB, wheezing currently Assessment & Plan (03/15/2018 12:13 AM CDT): -patient now requiring 6 L O2 NC with increased cough and sputum production at home, no other infectious symptoms -will treat for exacerbation: azithromycin and prednisone 5 day course 03/14-03/18 -continue home Anoro Ellipta daily -q6h DuoNebs scheduled with RT -wean O2 as able Acute respiratory failure wi th hypoxia (CMS/HCC) 03/14/2018 05/15/2018 Assessment & Plan (03/30/2018 4:21 PM CDT): Likely multifactorial w/ CHF exacerbation and CAD w/ underlying COPD. Patient has had 2 recent admits w/ similar presentation and both required stents and IV diuresis and last admission treated for COPD exacerbation. CXR w/ pulm edema and exam w/ crackles and wheezing and NT-BNP 15,000 (8-9k last admissions). Breathing comfortably on RA now. BCx NGTD. Will hold on steroids/abx as patient w/ no fevers or cough/sputum - IV Lasix to net goal -1L - net goal of ~1L - scheduled duonebs - low salt diet, daily weights Assessment & Plan (03/30/2018 2:32 AM CDT): Likely multifactorial w/ CHF exacerbation and CAD w/ underlying COPD. Patient had had 2 recent admits w/ similar presentation and both required stents and IV diuresis and last admission treated for COPD exacerbation. - CXR w/ pulm edema and exam w/ crackles and wheezing and NT-BNP 15,000 (8-9k last admissions) - diuresis FBG -1L, spot Lasix - blood cultures ngtd - scheduled duonebs; will hold on steroids/abx given recent course and patient w/ no fevers or cough/sputum Assessment & Plan (03/20/2018 12:04 PM CDT): 2/2 COPD/CHF exacerbation, unclear provoking etiology, possible dietary indiscretion with reduced Lasix dose over last 2 weeks -on 6 L O2 initially in CCU, saturating in high 90s, weaned as able, subjectively improved breathing status per patient -CT PE from OSH nominated for radiology read (outside report of no PE, noted b/l pulmonary edema and pleural effusions) -CXR on admission c/w CT findings -ABG 7.45/29/105 on 6 L -oxygen weaned down to 2 L on floor overnight and to off in the morning -decrease lasix PO 40 daily for net even to mildly net negative FBG and to home regimen of 20 PO BID on discharge Assessment & Plan (03/15/2018 12:18 AM CDT): Patient presented to outside hospital with acute hypoxic respiratory failure requiring BiPAP with desaturation to high 60s. BiPAP successfully transitioned to NC on arrival to CCU. Etiology likely combination of acute CHF and COPD exacerbations. -OSH CT PE: negative for PE, b/l effusions and edema noted, nominated for radiology re-read -CHF and COPD management per below -wean O2 as tolerated, no home O2 requirement -CXR and CT chest with b/l pulmonary edema and pleural effusions -ABG on 6 Liters NC: 7.45/29/105/21 NSTEMI (non-ST elevated myoc ardial infarction) ([facility]) 02/17/2018 05/15/2018 Assessment & Plan (03/30/2018 11:14 AM CDT): trop .038-> .068-> 0.54. Multivessel disease in process of staged complex PCI w/ LAD and Lcx and OM1 completed. s/p PCI 03/29 for staged RCA intervention: DESx2 to mid/proximal RCA disease with R radial access. This is likely c/t initial symptomatology - continue asa, plavix, atorva, lisinopril, metoprolol Assessment & Plan (03/30/2018 2:31 AM CDT): Multivessel disease in process of staged complex PCI w/ LAD and Lcx and OM1 completed. This is likely c/t current symptoms - trop .038-> .068-> 0.54 - s/p PCI 03/29 for staged RCA intervention: DESx2 to mid/proximal RCA disease with R radial access - continue asa, plavix, atorva, lisinopril, metoprolol Assessment & Plan (03/20/2018 12:04 PM CDT): -s/p 2 SASHA to LAD 02/20/18 for NSTEMI troponin peak 7.99 -troponin peak 0.83, down to 0.76, no acute EKG changes, presumed 2/2 CHF exacerbation above -continue ASA/Plavix, atorvastatin, BB -scheduled for staged PCI on Monday of OM and RCA by Dr. Casey -status post PCI with DESx 2 to OM1 and proximal LCx today: continue ASA, plavix and high intensity statin -staged PCI of RCA to be done as outpatient in the future Assessment & Plan (03/15/2018 2:00 AM CDT): -s/p 2 SASHA to LAD 02/20/18 for NSTEMI (troponin peak 7.99), planned for staged PCI to high grade lesions in OM1 and RCA as outpatient -continue ASA/Plavix, atorvastatin 80, metoprolol tartrate 12.5 mg BID -troponin 0.72-->0.83-->0.76 -EKG with Q waves in V3, III and non-specific ST/T changes in lateral leads largely unchanged from baseline -continue to trend troponins, defer hep gtt as troponin is likely demand ischemia in s/o COPD/CHF exacerbation w/o significant EKG changes -discuss staged PCI when patient clinically stabilized Assessment & Plan (02/21/2018 7:21 AM CDT): Multivessel disease - CT surgery consult: considering CABG, patient refused - TTE, BNP (4,584), carotid US, vein mapping, PFTs, and CT chest completed - Staged complex PCI started 02/20 with 2x stents to LAD, will need right circumflex intervention at a later date Assessment & Plan (02/17/2018 2:32 AM CDT): Multivessel disease on OSH cath films - CT surgery consult: considering CABG - TTE, carotid ultrasound, lower extremity vein mapping, CT chest w/o contrast, bilateral upper extremity Bps, PFTs NSTEMI (non-ST elevated myoc ardial infarction) ([facility]) 02/16/2018 05/15/2018 Assessment & Plan (02/21/2018 7:20 AM CDT): - ASA 81, atorva 80, carvediolol 3.125 bid, started lisinopril 5 is on home quinapril 40 - Started plavix - Troponin trended down at OSH, uptrending here 7.21 -> 7.54 -> 7.99 -> 7.50 -> 7.89 -> 6.75 -> 5.89 -> 4.23 Assessment & Plan (02/17/2018 2:25 AM CDT): Troponins downtrended at OSH originally. 7.21 on arrival here -> 7.54 - heparin gtt - ASA81 qd, atorva 80 qd - holding plavix for likely CABG - captopril 6.25 mg q6h for afterload reduction - carvedilol 3.125 bid Acute hypoxemic respiratory failure 02/16/2018 02/17/2018 Assessment & Plan (02/17/2018 2:30 AM CDT): 07/28 CHF exacerbation - wean O2 as tolerated - treat CHF as above Immunizations Immunization Administration Dates Next Due Influenza, Trivalent, High D ose, Split, Preservative Free, Intramuscular 03/20/2018 Social History Tobacco Use Types Packs/Day Years Used Date Smoking Tobacco: Former Cigarettes 1 52 1 966 - 2017 Smokeless Tobacco: Never Alcohol Use Standard [...] of Binge Drinking Not on file 12/25 Personal Safety Answer Date Recorded Have you ever been in or are you currently in a harmful physical or emotional relationship or is someone making you feel afraid or unsafe? Denies 05/17/2023 Comments No Sex and Gender Information Value Date Recorded Sex Assigned at Not on file Legal Sex Female 7:40 AM CDT Gender Identity Not on file Sexual Orientation Not on file Last Filed Vital Signs Vital Sign Reading Time Taken Comments Blood Pressure 120/58 05/17/2023 1:20 PM MEDICAL INSTRUMENT CABLE FABRICATOR Pulse 61 05/17/2023 1:20 PM MEDICAL INSTRUMENT CABLE FABRICATOR Temperature 36.7 C (98 F) 05/17/2023 7:38 AM MEDICAL INSTRUMENT CABLE FABRICATOR Respiratory Rate 14 05/17/2023 1:30 PM MEDICAL INSTRUMENT CABLE FABRICATOR Oxygen Saturation 93% 05/17/2023 1:20 PM MEDICAL INSTRUMENT CABLE FABRICATOR Inhaled Oxygen Concentration - - Weight 76.2 kg (168 lb) 05/17/2023 7:38 AM MEDICAL INSTRUMENT CABLE FABRICATOR Height 154.9 cm (5' 1 ) 05/17/2023 7:38 AM MEDICAL INSTRUMENT CABLE FABRICATOR Body Mass Index 31.74 05/17/2023 7:38 AM MEDICAL INSTRUMENT CABLE FABRICATOR Plan of Treatment Not on file Medical Devices Implanted Type Area Delivery Of [employer] Device Identifier Shelf Expiration Date Model / Serial / Lot [employer] [id number] Synergy 2.5mm 38mm 144cm Radiopaque 1 Access Port Inflation Lumen - [id number] Implanted:Qty: 1 on 02/20/2018 by Esau Weiner MD at [facility] Stent [employer] 10/03/2018 [id number] / / [id number] [employer] [id number] Synergy 3mm 20mm 144cm Radiopaque 1 Access Port Inflation Lumen - [id number] Implanted:Qty: 1 on 02/20/2018 by Esau Weiner MD at [facility] Stent [employer] 08/14/2018 [id number] / / [id number] [employer] Stent Coronary De Rx Cocr Ors Msn 3.0x13mm [id number] - [id number] Implanted:Qty: 1 on 01/13/2022 by Quang Monzon MD at [facility] Stent Left: Circumflex Coronary Artery [employer] 07/13/2023 [id number] / / [id number] [employer] [id number] Synergy 2.5mm 38mm 144cm Radiopaque 1 Access Port Inflation Lumen - [id number] Implanted:Qty: 1 on 03/19/2018 by Jacinto Lo MD at [facility] [employer] 10/03/2018 [id number] / / [id number] [employer] [id number] Synergy 3mm 12mm 144cm Radiopaque 1 Access Port Inflation Lumen - [id number] Implanted:Qty: 1 on 03/19/2018 by Jacinto Lo MD at [facility] [employer] 05/29/2018 [id number] / / [id number] [employer] [id number] Synergy 2.5mm 38mm 144cm Radiopaque 1 Access Port Inflation Lumen - [id number] Implanted:Qty: 1 on 03/29/2018 by Jacinto Lo MD at [facility] [employer] 11/30/2019 [id number] / / [id number] [employer] [id number] Synergy 3mm 24mm 144cm Radiopaque 1 Access Port Inflation Lumen - [id number] Implanted:Qty: 1 on 03/29/2018 by Jacinto Lo MD at [facility] [employer] 10/12/2019 [id number] / / [id number] [employer] Supera 5mm 6fr 120mm 120cm Peripheral Stent Vascular W-28-868-120-P 6 - [id number] Implanted:Qty: 1 on 05/10/2023 at [facility] [employer] 11/23/2024 S-50-120- 120-P6 / / [id number] [employer] Qing 6mm 120mm 130cm Drug Elute Delivery System Stent Vascular [id number] - [id number] Implanted:Qty: 1 on 05/10/2023 at [facility] [employer] 12/05/2024 [id number] / / [id number] [employer] Qing 6mm 120mm 130cm Drug Elute Delivery System Stent Vascular [id number] - [id number] Implanted:Qty: 1 on 05/10/2023 at [facility] [employer] Rud[employer] 12/05/2024 [id number] / / [id number] [employer] Device 6fr Closure Celt Acd Vascular Sterile Latex Free Disposable Shala Kclt-06 - [id number] Implanted:Qty: 1 on 05/10/2023 at [facility] [employer] 12/13/2025 KCLT-06 / / [id number] [employer] Supera 5mm 6fr 120mm 120cm Peripheral Stent Vascular Y-12-241-120-P 6 - [id number] Implanted:Qty: 1 on 05/10/2023 at [facility] [employer] 10/23/2024 S-50-120- 120-P6 / / [id number] [employer] Device 6fr Closure Celt Acd Vascular Sterile Latex Free Disposable Shala Kclt-06 - [id number] Implanted:Qty: 1 on 05/17/2023 at [facility] [employer] 12/13/2025 KCLT-06 / / [id number] [employer] Supera 5mm 6fr 120mm 120cm Peripheral Stent Vascular R-50-670-120-P 6 - [id number] Implanted:Qty: 1 on 05/17/2023 at [facility] [employer] 12/23/2024 S-50-120- 120-P6 / / [id number] [employer] Supera 5mm 6fr 120mm 120cm Peripheral Stent Vascular L-89-672-120-P 6 - [id number] Implanted:Qty: 1 on 05/17/2023 at [facility] [employer] 09/23/2024 S-50-120- 120-P6 / / [id number] Procedures Procedure Name Priority Date/Time Associated Diagnosis Comments EGFR Routine 05/17/2023 6:33 AM MEDICAL INSTRUMENT CABLE FABRICATOR PAD (peripheral artery disease) (HCC) LIPID PANEL Routine 05/17/2023 6:33 AM MEDICAL INSTRUMENT CABLE FABRICATOR PAD (peripheral artery disease) (HCC) POCT HEMOGLOBIN A1C Routine 01/04/2022 5 :03 PM CDT from Last 3 Months or Most Recently Relevant to Health Maintenance Results * (ABNORMAL) eGFR (05/17/2023 6:33 AM MEDICAL INSTRUMENT CABLE FABRICATOR) eGFR 22(L) >=60 mL/min/1. 73 m2 [facility] Comment: Interpretive Data Reference Interval Normal >/= 90 mL/min/1.73m2 Mildly decreased* 60 - 89 mL/min/1.73m2 Mildly to moderately decreased 45 - 59 mL/min/1.73m2 Moderately to severely decreased 30 - 44 mL/min/1.73m2 Severely decreased 15 - 29 mL/min/1.73m2 Kidney Failure < 15 mL/min/1.73m2 *Relative to young adult level Estimated glomerular filtration rate is determined by the 2020 CKD-EPI equation recommended by the [employer] (A Unifying Approach to GFR Estimation: Recommendations of the NKF-ASK Task Force on Reassessing the Inclusion of Race in Diagnosing Kidney Disease, JASN 2020). The CKD-EPI equation should not be used for patients with unstable renal function and has not been validated in children and those over 70. Current interpretive data was last reviewed 2021. Blood 05/17/2023 6:33 AM MEDICAL INSTRUMENT CABLE FABRICATOR 05/17/2023 6:47 AM MEDICAL INSTRUMENT CABLE FABRICATOR us Karl Gonzalez MD LAB BLOOD ORDERABLES Fi nal Result [facility] [place] [address] * (ABNORMAL) Lipid panel (05/17/2023 6:33 AM MEDICAL INSTRUMENT CABLE FABRICATOR) Cholesterol 140 30 - 199 mg/dL [facility] Comment: Interpretive Data Ages < or = 19 years Acceptable: <170 mg/dL Borderline high: 170-199 mg/dL High: >or= 200 mg/dL Ages > or = 20 years Desirable: <200 mg/dL Borderline high: 200-239 mg/dL High: >or= 240 mg/dL Literature References: 1. Expert Panel on Integrated Guidelines for Cardiovascular Health and Risk Reduction in Children and Adolescents. Pediatrics 2011;128:S213 2. NCEP Expert Panel. Circulation 2004;110:227 Current Interpretive Data was last revised on 2018. Triglycerides 143 <=149 mg/dL [facility] Comment: Interpretive Data Ages < or = 9 years Acceptable: <75 mg/dL Borderline high: 75-99 mg/dL High: >or= 100 mg/dL Ages 10 to 20 years Acceptable: <90 mg/dL Borderline high: 90-129 mg/dL High: >or= 130 mg/dL Ages > or = 20 years Desirable: <150 mg/dL Borderline high: 150-199 mg/dL High: 200-499 mg/dL Very high: >or= 499 mg/dL Literature References: 1. Expert Panel on Integrated Guidelines for Cardiovascular Health and Risk Reduction in Children and Adolescents. Pediatrics 2011;128:S213 2. NCEP Expert Panel. Circulation 2004;110:227 Current Interpretive Data was last revised on 2018. HDL 37(L) >=40 mg/dL [facility] Comment: Interpretive Data Ages < or = 19 years Acceptable: >45 mg/dL Borderline low: 40-45 mg/dL Low: <40 mg/dL Ages > or = 20 years Desirable: >or= 60 mg/dL Low: <40 mg/dL Literature References: 1. Expert Panel on Integrated Guidelines for Cardiovascular Health and Risk Reduction in Children and Adolescents. Pediatrics 2011;128:S213 2. NCEP Expert Panel. Circulation 2004;110:227 Current Interpretive Data was last revised on 2018. LDL, calculated 74 <=129 mg/dL [facility] Comment: Interpretive Data Ages < or = 19 years Acceptable: <110 mg/dL Borderline high: 110-129 mg/dL High: >or= 130 mg/dL Ages > or = 20 years Optimal: <100 mg/dL Near optimal: 100-129 mg/dL Borderline high: 130-159 mg/dL High: >160 mg/dL Literature References: 1. Expert Panel on Integrated Guidelines for Cardiovascular Health and Risk Reduction in Children and Adolescents. Pediatrics 2011;128:S213 2. NCEP Expert Panel. Circulation 2004;110:227 Current Interpretive Data was last revised on 2018. Non-HDL Cholesterol 103 mg/dL [facility] Comment: Interpretive Data Ages < or = 19 years Acceptable: <120 mg/dL Borderline high: 120-144 mg/dL High: >145 mg/dL Ages > or = 20 years When triglycerides are >200 mg/dL, Non-HDL cholesterol is a secondary target of therapy with treatment goals that are 30 mg/dL greater than the LDL cholesterol target. Literature References: 1. Expert Panel on Integrated Guidelines for Cardiovascular Health and Risk Reduction in Children and Adolescents. Pediatrics 2011;128:S213 2. NCEP Expert Panel. Circulation 2004;110:227 Current Interpretive Data was last revised on 2018. Chol/HDL ratio 4 [facility] Blood 05/17/2023 6:33 AM MEDICAL INSTRUMENT CABLE FABRICATOR 05/17/2023 6:47 AM MEDICAL INSTRUMENT CABLE FABRICATOR us Karl Gonzalez MD LAB BLOOD ORDERABLES Fi nal [facility] [place] [address] * (ABNORMAL) POCT hemoglobin A1c (01/04/2022 5:03 PM CDT) Hgb A1C, POC 6.5(H) 4.0 - 5.6 % [facility] Est Average Gluc POC 140 mg/dL [facility] Comment: The ADA recommends reporting an estimated Average Glucose (eAG) with all Hemoglobin A1c results using the equation derived from a study of 507 normal and diabetic adults. Minority populations were underrepresented and children were not included. (Diabetes Care 31:5726-1955, 2008). The eAG is not equivalent to a fasting glucose. Blood 01/04/2022 5:03 PM CDT 01/04/2022 5:03 PM CDT Philip Dumont MD POINT OF CARE TEST ORDERABLES Final Result [facility] [place] [address] from Last 3 Months or Most Recently Relevant to Health Maintenance Insurance [employer] CHOICE MEDICARE PPO HUMANA MEDICARE HMO HUMANA MEDICARE HMO MEDICARE O Advance Directives For more information, please contact: [phone] * Full Code (Latest Code Status on File) Date Activated Date Inactivated Comments 05/17/2023 7:37 AM 05/18/2023 5:20 AM * Full Code Date Activated Date Inactivated Comments 05/10/2023 7:59 AM 05/11/2023 5:28 AM * Full Code Date Activated Date Inactivated Comments 01/13/2022 4:19 PM 01/13/2022 11:20 PM * Full Code Date Activated Date Inactivated Comments 12/22/2021 3:55 PM 12/22/2021 9:21 PM * Full Code Date Activated Date Inactivated Comments 03/28/2018 6:53 PM 03/31/2018 5:25 PM Care Teams Multiple Drum Sander Relationship Specialty Start Date End Date Ron Booth MD PCP - General 03/30/17
--- OUTSIDE RECORDS SUMMARY | 2024-08-14 08:08 | XMS_ITS | Encounter Summary ---
Author Organization [facility] Facility Care Team Providers Care Economic Adviser Name Role Phone Ron Booth MD Primary Care Provider [phone] Encounter Details Date Type Department Care Team (Latest Contact Info) Description 06/07/2017 Orders Only [facility]IN[facility] ProviderDaren MD [address] [place] [id number] Social History Tobacco Use Types Packs/Day Years Used Date Smoking Tobacco: Never Assessed Comments Unknown Sex and Gender Information Value Date Recorded Sex Assigned at Not on file Legal Sex Female 7:40 AM CDT Gender Identity Not on file Sexual Orientation Not on file documented as of this encounter Plan of Treatment Not on file documented as of this encounter Procedures Procedure Name Priority Date/Time Associated Diagnosis Comments PROCEDURE - RESULT 06/07/2017 12 :00 AM CUTTER MACHINE TENDER documented in this encounter Results * PROCEDURE - RESULT (06/07/2017 12:00 AM CUTTER MACHINE TENDER) Narrative 06/07/2017 12:00 AM CUTTER MACHINE TENDER Ordered by an unspecified provider. Historical Provider Final Res ult documented in this encounter Visit Diagnoses Not on filedocumented in this encounter Care Teams Economic Adviser Relationship Specialty Start Date End Date Ron Booth MD PCP - General 03/30/17 documented as of this encounter
--- OUTSIDE RECORDS SUMMARY | 2024-08-14 08:08 | XMS_ITS | Clinical Summary ---
Author Organization [facility] [address] Address [address] [place] [address] Care Team Providers Care Manager Of Case Management Name Role Phone Ron Booth MD Primary Care Provider [phone] Allergies No known active allergies Medications atorvastatin [...] (12/22/2021): Added automatically from request for surgery [id number] Chest pain 12/08/2021 Overview (12/08/2021): Added automatically from request for surgery [id number] SOB (shortness of breath) on exertion 12/08/2021 Overview (12/08/2021): Added automatically from request for surgery [id number] CKD (chronic kidney disease) 08/25/2021 Osteoarthritis of multiple joints 08/25/2021 Primary hypertension 08/25/2021 Type 2 diabetes mellitus 08/25/2021 Coronary artery disease invo lving solomon coronary artery of solomon heart without angina pectoris 07/10/2018 Essential hypertension [...] respiratory failure wi th hypoxia and hypercapnia ([facility]) 03/14/2018 Overview (05/01/2023): Last Assessment [...] 40 mg IV bid Paroxysmal atrial fibrillation ([facility]) 018 Assessment & Plan (03/30/2018 [...] - Continue carvedilol 3.125 BID - Defer termite control service representative anticoagulation, CHADS2-VASC score 5 when in afib Assessment & Plan (02/17/2018 2:36 AM CDT): Likely 2/2 heart failure - HF now improved; will hold amio from OSH for now and monitor - on heparin gtt for NSTEMI now. Will require anticoagulation for CHADS2-VASC of 5 in the long run Acute on chronic diastolic c ongestive heart failure ([facility]) 02/17/2018 Overview (05/01/2023): Last Assessment & Plan: Ischemic; Likely c/t symptoms. EF 43% w/ grade III diastolic. - GDMT for CAD - Lasix diuresis - low salt diet, daily weights, strict I/Os - repeat TTE Atrial fibrillation with RVR ([facility]) 8 Overview (05/01/2023): Last Assessment [...] Percocet NSTEMI (non-ST elevated myocardial infarction) ( [facility]) 02/16/2018 Overview (05/01/2023): Last Assessment [...] 7.45/29/105/21 NSTEMI (non-ST elevated myoc ardial infarction) ([facility]) 02/17/2018 05/15/2018 Assessment & Plan [...] PFTs NSTEMI (non-ST elevated myoc ardial infarction) ([facility]) 02/16/2018 05/15/2018 Assessment & Plan [...] D ose, Split, Preservative Free, Intramuscular 03/20/2018 Surgical History Surgery Date Site/Laterality Comments TUBAL LIGATION APPENDECTOMY HYSTERECTOMY LUMBAR DISCECTOMY 05/26/2017 - 06/25/2017 Right L4-5 and L5-S1 microdiskectomy with foraminotomy and nerve root CARDIAC STENT PLACEMENT 02/24/2018 - 03/25/2018 ABLATION 06/26/2019 - 06/25/2020 Left and nerve block of knee CARDIAC CATHETERIZATION Medical History Medical History Date Comments Hypertension Diabetes (HCC) Back pain Arthritis Carotid stenosis Hyperlipidemia NSTEMI (non-ST elevated myoc ardial infarction) ([facility]) (HCC) 02/16/2018 Coronary artery disease CHF (congestive heart failure) ([facility]) ([facility]) Osteoarthritis of both knees COPD (chronic obstructive pulmonary disease) (HC C) Chronic kidney disease Arrhythmia CORTES (obstructive sleep apnea) re fuses to wear CPAP Family History Medical History Relation Name Comments Leukemia Mother Anesthesia problems Neg Hx Relation Name Status Comments Mother Social History Tobacco Use Types Packs/Day [...] on file Sexual Orientation Not on file Obstetrics History Last Filed Vital Signs Vital Sign Reading Time Taken Comments Blood Pressure 120/58 05/17/2023 1:20 PM FLATWORK ASSEMBLER Pulse 61 05/17/2023 1:20 PM FLATWORK ASSEMBLER Temperature 36.7 C (98 F) 05/17/2023 7:38 AM FLATWORK ASSEMBLER Respiratory Rate 14 05/17/2023 1:30 PM FLATWORK ASSEMBLER Oxygen Saturation 93% 05/17/2023 1:20 PM FLATWORK ASSEMBLER Inhaled Oxygen Concentration - - Weight 76.2 kg (168 lb) 05/17/2023 7:38 AM FLATWORK ASSEMBLER Height 154.9 cm (5' 1 ) 05/17/2023 7:38 AM FLATWORK ASSEMBLER Body Mass Index 31.74 05/17/2023 7:38 AM FLATWORK ASSEMBLER Plan of Treatment Health Maintenance Due Date Last Done Comments Albumin Creatinine Ratio, Urine 1945 Depression Screening 1945 Hepatitis C Screening 1945 Osteoporosis Screening-Bone Density Scan 1945 Dilated Eye Exam 1945 Foot Exam 1945 DTaP/Tdap/Td Vaccine (1 - Tdap) 1958 Hepatitis B Screening 1965 Lung Cancer Screening 1997 Zoster Vaccine (1 of 2) 1997 Well Visit 65+ 2012 Hemoglobin A1C 07/07/2022 01/04/2022, 01/25, 05/19/2017 Covid-19 Vaccine (4 - 2023-2 5 season) 2024 05/06/2021, 09/11/2020, 08/21/2020 Influenza Vaccine (#1) 2024 , 05/22/2019, 03/20/2018, Additional history exists Fall Risk Assessment 05/10/2024 05/10/2023 Lipid Panel 05/17/2024 05/17/2023, 03/26, 03/28/2018, Additional history exists eGFR 05/17/2024 05/17/2023, 12/25, 01/04/2022, Additional history exists Pneumococcal vaccine 65+ Completed 03/26/2017, 06/26 Medical Devices Implanted Type Area Brazing Furnace Feeder Device Identifier Shelf Expiration Date Model / Serial / Lot [employer] Rudi [id number] Synergy 2.5mm 38mm 144cm Radiopaque 1 Access Port Inflation Lumen - [id number] Implanted:Qty: 1 on 02/20/2018 by Esau Weiner MD at [facility] Stent [employer] 10/03/2018 [id number] / / [id number] [employer] [id number] Synergy 3mm 20mm 144cm Radiopaque 1 Access Port Inflation Lumen - [id number] Implanted:Qty: 1 on 02/20/2018 by Esua Weiner MD at [facility] Stent [employer] 08/14/2018 [id number] / / [id number] [employer] Stent Coronary De Rx Cocr Ors Msn 3.0x13mm [id number] - [id number] Implanted:Qty: 1 on 01/13/2022 by Quang Monzon MD at [facility] Stent Left: Circumflex Coronary Artery [employer] 07/13/2023 [id number] / / [id number] [employer] [id number] Synergy 2.5mm 38mm 144cm Radiopaque 1 Access Port Inflation Lumen - [id number] Implanted:Qty: 1 on 03/19/2018 by Jacinto Lo MD at [facility] [employer] 10/03/2018 [id number] / / [id number] [employer] [id number] Synergy 3mm 12mm 144cm Radiopaque 1 Access Port Inflation Lumen - [id number] Implanted:Qty: 1 on 03/19/2018 by Jacinto Lo MD at [facility] [employer] 05/29/2018 [id number] / / [id number] [employer] [id number] Synergy 2.5mm 38mm 144cm Radiopaque 1 Access Port Inflation Lumen - [id number] Implanted:Qty: 1 on 03/29/2018 by Jacinto Lo MD at [facility] Scientific Rudi 11/30/2019 [id number] / / [id number] [employer] [id number] Synergy 3mm 24mm 144cm Radiopaque 1 Access Port Inflation Lumen - [id number] Implanted:Qty: 1 on 03/29/2018 by Jacinto Lo MD at [facility] [employer] 10/12/2019 [id number] / / [id number] [employer] Supera 5mm 6fr 120mm 120cm Peripheral Stent Vascular O-31-875-120-P 6 - [id number] Implanted:Qty: 1 on 05/10/2023 at [facility] [employer] 11/23/2024 S-50-120- 120-P6 / / [id number] [employer] Qing 6mm 120mm 130cm Drug Elute Delivery System Stent Vascular [id number] - [id number] Implanted:Qty: 1 on 05/10/2023 at [facility] [employer] 12/05/2024 [id number] / / [id number] [employer] Qing 6mm 120mm 130cm Drug Elute Delivery System Stent Vascular [id number] - [id number] Implanted:Qty: 1 on 05/10/2023 at [facility] [employer] Scientific Rudi 12/05/2024 [id number] / / [id number] [employer] Device 6fr Closure Celt Acd Vascular Sterile Latex Free Disposable Shala Kclt-06 - [id number] Implanted:Qty: 1 on 05/10/2023 at [facility] [employer] 12/13/2025 KCLT-06 / / [id number] [employer] Supera 5mm 6fr 120mm 120cm Peripheral Stent Vascular L-38-412-120-P 6 - [id number] Implanted:Qty: 1 on 05/10/2023 at [facility] [employer] 10/23/2024 S-50-120- 120-P6 / / [id number] [employer] Device 6fr Closure Celt Acd Vascular Sterile Latex Free Disposable Shala Kclt-06 - [id number] Implanted:Qty: 1 on 05/17/2023 at [facility] [employer] 12/13/2025 KCLT-06 / / [id number] [employer] Supera 5mm 6fr 120mm 120cm Peripheral Stent Vascular U-83-785-120-P 6 - [id number] Implanted:Qty: 1 on 05/17/2023 at [facility] [employer] 12/23/2024 S-50-120- 120-P6 / / [id number] [employer] Supera 5mm 6fr 120mm 120cm Peripheral Stent Vascular S-74-363-120-P 6 - [id number] Implanted:Qty: 1 on 05/17/2023 at [facility] [employer] 09/23/2024 S-50-120- 120-P6 / / [id number] Procedures Procedure Name Priority Date/Time Associated Diagnosis Comments EGFR Routine 05/17/2023 6:33 AM FLATWORK ASSEMBLER PAD (peripheral artery disease) (HCC) LIPID PANEL Routine 05/17/2023 6:33 AM FLATWORK ASSEMBLER PAD (peripheral artery disease) (HCC) POCT HEMOGLOBIN A1C Routine 01/04/2022 5 :03 PM CDT from Last 3 Months or Most Recently Relevant to Health Maintenance Results * (ABNORMAL) eGFR (05/17/2023 6:33 AM FLATWORK ASSEMBLER) eGFR 22(L) >=60 mL/min/1. 73 m2 [facility] Comment: Interpretive Data Reference Interval Normal >/= [...] Inclusion of Race in Diagnosing Kidney Disease, NUPURSN 2020). The CKD-EPI equation should not be used for patients with unstable renal function and has not been validated in children and those over 70. Current interpretive data was last reviewed 2021. Blood 05/17/2023 6:33 AM FLATWORK ASSEMBLER 05/17/2023 6:47 AM FLATWORK ASSEMBLER us Karl Gonzalez MD LAB BLOOD ORDERABLES Fi nal Result [facility] [place] [address] * (ABNORMAL) Lipid panel (05/17/2023 6:33 AM FLATWORK ASSEMBLER) Cholesterol 140 30 - 199 mg/dL [facility] Comment: Interpretive Data Ages < or = [...] on 2018. Triglycerides 143 <=149 mg/dL [facility] Comment: Interpretive Data Ages < or = [...] revised on 2018. HDL 37(L) >=40 mg/dL [facility] Comment: Interpretive Data Ages < or [...] on 2018. LDL, calculated 74 <=129 mg/dL [facility] Comment: Interpretive Data Ages < or [...] revised on 2018. Non-HDL Cholesterol 103 mg/dL [facility] Comment: Interpretive Data Ages < or [...] last revised on 2018. Chol/HDL ratio 4 [facility] Blood 05/17/2023 6:33 AM FLATWORK ASSEMBLER 05/17/2023 6:47 AM FLATWORK ASSEMBLER Karl Gonzalez MD LAB BLOOD ORDERABLES Fi nal Result [facility] [place] [address] * (ABNORMAL) POCT hemoglobin A1c (01/04/2022 5:03 PM CDT) Hgb A1C, POC 6.5(H) 4.0 - 5.6 % [facility] Est Average Gluc POC 140 mg/dL [facility] Comment: The ADA recommends reporting an estimated Average Glucose (eAG) with all Hemoglobin A1c results using the equation derived from a study of 507 normal and diabetic adults. Minority populations were underrepresented and children were not included. (Diabetes Care 31:5097-8797, 2008). The eAG is not equivalent to a fasting glucose. Blood 01/04/2022 5:03 PM CDT 01/04/2022 5:03 PM CDT Philip Dumont MD POINT OF CARE TEST ORDERABLES Final Result Performing Organization Address [facility] Co de Phone Number [facility] [place] [address] from Last 3 Months or Most Recently Relevant to Health Maintenance Insurance [employer] CHOICE MEDICARE PPO HU[employer]NA MEDICARE HMO HUMANA MEDICARE HMO MEDICARE O Advance Directives For more information, please contact: [phone] * Full Code (Latest Code Status on [...] 6:53 PM 03/31/2018 5:25 PM Care Teams Manager Of Case Management Relationship Specialty Start Date End Date Ron Booth MD PCP - General 03/30/17
[2024-08-14 08:14] LABS: Alanine Aminotransferase 15 U/L (6-35); Albumin Level 4.3 g/dL (3.5-5.1); Alkaline Phosphatase 80 U/L (38-126); Anion Gap 12 mmol/L (4-12); Aspartate Amino Transferase 20 U/L (14-36); Bilirubin,Total 1.1 mg/dL (0.2-1.3); Blood Urea Nitrogen 19 mg/dL (7-17); Calcium 9.3 mg/dL (8.4-10.2); Carbon Dioxide 25 mmol/L (22-30); Chloride 105 mmol/L (98-107); Estimated CRCL calculation 49 ml/min; Estimated Glomerular Filt Rate 54; Glucose 271 mg/dL (65-110); Potassium 3.8 mmol/L (3.4-5.0); Sodium 142 mmol/L (137-145)
[2024-08-14 08:38] LABS: Influenza A QL RT-PCR Negative (Negative); Influenza B QL RT-PCR Negative (Negative); RSV RNA, RT-PCR Negative (Negative); SARS-CoV-2 RNA PCR Negative (Negative)
[2024-08-14 08:42] LABS: NT Pro B Type Natriuretic Pept 3560 pg/mL (19.9-100)
[2024-08-14] MEDS: FUROSEMIDE INJ 40 MG/4 ML VIAL IV PUSH ×2 (10:19→22:30)
--- NOTE | 2024-08-14 12:45 | P.HP_ITS ---
H&P: HPI History of Present Illness Date/Time: 08/14/24 12:45 Chief Complaint: Shortness of breath. Narrative: This is a 79-year-old female with chronic obstructive pulmonary disease, chronic respiratory failure with hypoxia on 2.5 L nasal cannula home oxygen, congestive heart failure, coronary artery disease, peripheral arterial disease,, hypertension, obstructive sleep apnea, and type 2 diabetes mellitus who presented to the emergency department via EMS from home for evaluation of shortness of breath. She gives a 3 day history of nonproductive cough, shortness of breath on lesser and lesser exertion, and poor appetite. Her symptoms were much worse this morning and she could hardly catch her breath and she called 911. She does not have nebulizers at home and only had a rescue inhaler which has not helped. She denies fever, sinus congestion, chest pain, pleuritic pain, nausea, vomiting, calf pain, and edema. On EMS arrival her SpO2 was 88% on room air. She was administered albuterol nebulizer treatment EN route to the hospital and was placed on CPAP. In the ED: The patient arrived to triage on CPAP with labored breathing and respiratory rate of 30. She was transition to BiPAP and is more comfortable. She has been afebrile since arrival. ABG showed a pH of 7.287, pCO2 50.8, PO2 70, HC03 23.7. Labs were significant for WBC count is 16.6, glucose 271, proBNP 3560. Respiratory panel was negative. Chest x-ray showed cardiomegaly with pulmonary edema. She was given a DuoNeb and furosemide 40 mg IV and she is being admitted in this setting for further treatment. Review of Systems Review of Systems: 12 systems were reviewed and are negativ e except for as per HPI. [facility] Past Medical History Medical History (Updated 08/14/24 @ 21:36 by Regina Saul PA-C) Chronic obstructive pulmonary disease Chronic respiratory failure with hypoxia, on home oxygen therapy Congestive heart failure Type 2 diabetes mellitus Obstructive sleep apnea Coronary artery disease Hypertension Myocardial infarct Surgical History Surgical History (Updated 08/14/24 @ 21:33 by Regnia Saul PA-C) History of intravascular stent placement bilateral lower extremities History of coronary artery stent placement Social History Social History (Updated 08/14/24 @ 21:33 by Regina Saul PA-C) Social History: Surrogate medical decision maker: Prachi Murphy, daughter. Code status: Full code. Smoking status: Former smoker Tobacco type: cigarettes Smoking end date: 06/26/17 Alcohol intake: never Substance use: never Substance use type: does not use Do You Feel Safe in your Home?: Yes Lack of Transportation: No Lack of Food: Never True Current Housing: I Have Housing Concerned About Future Housing: No Difficulty Paying Gas/Electric Bills: No Difficulty Paying for Meds: No Currently Unemployed: No Education: High School Diploma/GED Difficulty w/ Childcare or Family Care: No Spiritual care concerns: No Meds Home Medications and Allergies Home Medications ?Medication ?Instructions ?Recorded ?Confirmed ?Type albuterol sulfate 90 mcg/actuation 2 puff inhalation PRN 08/14/24 08/14/24 History aerosol inhaler apixaban 5 mg tablet (Eliquis) 5 mg PO DAILY 08/14/24 08/14/24 History atorvastatin 80 mg tablet 80 mg PO QPM 08/14/24 08/14/24 History bupropion HCl 300 mg 24 hr tablet, 300 mg PO DAILY 08/14/24 08/14/24 History extended release clopidogrel 75 mg tablet 75 mg PO DAILY 08/14/24 08/14/24 History enalapril maleate 20 mg tablet 20 mg PO QID 08/14/24 08/14/24 History furosemide 40 mg tablet 40 mg PO QID 08/14/24 08/14/24 History glimepiride 2 mg tablet 2 mg PO DAILY 08/14/24 08/14/24 History hydrocodone 5 mg-acetaminophen 325 1 tablet PO PRN PRN pain 08/14/24 08/14/24 History mg tablet hydroxyzine HCl 25 mg tablet 25 mg PO DAILY 08/14/24 08/14/24 History isosorbide mononitrate 30 mg 30 mg PO DAILY 08/14/24 08/14/24 History tablet,extended release 24 hr loperamide 2 mg capsule 2 mg PO PRN 08/14/24 08/14/24 History nifedipine 30 mg tablet,extended 30 mg PO DAILY 08/14/24 08/14/24 History release 24 hr pantoprazole 40 mg tablet,delayed 40 mg PO DAILY 08/14/24 08/14/24 History release sertraline 100 mg tablet 100 mg PO Q24H 08/14/24 08/14/24 History Allergies Allergy/AdvReac Type Severity Reaction Status Date / Time No Known Allergies Allergy Verified 08/14/24 08:06 Vital Signs Vital Signs - 24 hr 08/14/24 07:25 08/14/24 07:46 08/14/24 07:57 Temperature 97.2 F L 97.6 F Pulse Rate 88 80 Respiratory Rate 37 H 30 H Blood Pressure 176/101 H 118/96 H Pulse Oximetry 86 L 94 95 Oxygen Delivery CPAP BiPAP 08/14/24 07:59 08/14/24 08:00 08/14/24 10:20 Temperature Pulse Rate 81 81 81 Respiratory Rate 30 H 30 H 20 Blood Pressure 161/91 H Pulse Oximetry 96 99 Oxygen Delivery BiPAP 08/14/24 10:34 08/14/24 11:50 Temperature Pulse Rate 82 71 Respiratory Rate 30 H 20 Blood Pressure 163/73 H Pulse Oximetry 100 96 Oxygen Delivery BiPAP Exam Narrative: General: Nontoxic-appearing female in the semi-Giordano position in bed in no acute distress. Weight: 84.8 kg. BMI: 29.3. HEENT: PERRL, EOMI. Sclera anicteric. Oral mucosa moist. Oropharynx clear. Neck: Supple. No JVD. Respiratory: Mild conversational dyspnea though she appears in no acute respiratory distress and she is speaking freely without problems. Lung sounds are diminished throughout with fine crackles and expiratory wheezing. Cardiovascular: Regular rate and rhythm with S1-S2. Gastrointestinal: Abdomen is soft, nontender, and nondistended with positive bowel sounds. Skin: Warm and dry. No rash or lesions on limited exam. Extremities: No cyanosis, clubbing, or significant edema. Radial and pedal pulses intact. No palpable knots or cords. Negative Goyo sign bilaterally. Neurological: Alert. Cranial nerves 2-12 are grossly intact. No gross focal deficits to casual conversation. Psychiatric: Pleasant and cooperative with normal mood and affect. Judgment and insight intact. She is in good spirits. H&P: Results Labs Labs: Short CBC 08/14/24 Range/Units 07:56 WBC 16.6 H (4.5-10.0) K/mm3 Hgb 12.1 (12.0-15.0) g/dL Hct 40.0 (37.0-47.0) % Plt Count 255 (150-375) k/mm3 [facility] 08/14/24 07:56 Sodium 142 Potassium 3.8 Chloride 105 Carbon Dioxide 25 BUN 19 H Creatinine 1.00 Glucose 271 H Calcium 9.3 Liver Function 08/14/24 Range/Units 07:56 Total Bilirubin 1.1 (0.2-1.3) mg/dL AST 20 (14-36) U/L ALT 15 (6-35) U/L Alkaline Phosphatase 80 (38-126) U/L Albumin 4.3 (3.5-5.1) g/dL Imaging Chest X-Ray 08/14/24 08:05 Impression: 1: Cardiomegaly with pulmonary edema. Assessment and Plan Assessment and plan (1) Acute respiratory failure with hypoxia and hypercapnia: Code(s): J96.01 - Acute respiratory failure with hypoxia; J96.02 - Acute respiratory failure with hypercapnia Status: Acute (2) CHF exacerbation: Code(s): I50.9 - Heart failure, unspecified Status: Acute (3) Chronic obstructive pulmonary disease: Code(s): J44.9 - Chronic obstructive pulmonary disease, unspecified Status: Acute (4) Type 2 diabetes mellitus: Code(s): E11.9 - Type 2 diabetes mellitus without complications Status: Acute (5) Hypertension: Code(s): I10 - Essential (primary) hypertension Status: Acute Plan The patient presented to the emergency department for evaluation of shortness of breath as detailed in HPI. Labs, imaging, EKG, and all reports were personally reviewed. She was in respiratory distress on arrival an ABG showed hypoxia and hypercarbia for which she was started on BiPAP. There were significant for min her blood gas within a couple of hours and she has since been weaned back to her usual 2.5 L nasal cannula. She has crackles on exam and chest x-ray shows mild pulmonary edema. Continue IV diuresis with furosemide 40 mg b.i.d. with close monitoring of volume status, renal function, and electrolytes. Lung sounds are diminished throughout with scattered expiratory wheezing and she has been started on scheduled bronchodilators and a short course of steroids. No indication for antibiotics at this time. Initiate sliding scale insulin, Accu- Cheks, and hypoglycemic protocol. Her home medications will be reviewed and resumed as appropriate. Findings and treatment plan were discussed with the patient. Questions were solicited and answered to satisfaction. The patient's medical management will be taken over by the hospitalist team in a.m. Quality VTE Prophylaxis VTE prophylaxis: pharmacologic ordered (on apixaban) Hospitalist MIPS Advance Care Plan I have confirmed that the patient's Advanced Care Plan is present, code status is documented, or surrogate decision maker is listed in patient medical record.: Yes Medication Reconciliation I have utilized all available resources to obtain, update and review the patients current medications (includes all prescriptions, OTC, herbals, cannabis, and nutritional supplements).: Yes
--- NOTE | 2024-08-14 12:54 | ECHO_ITS ---
Patient Info Name: Ann Marie Iglesias Age: 79 years : 1945 Gender: Female Ht: 62 in Wt: 204 lbs BSA: 2.06 m2 HR: 88 bpm BP: 173 / 78 mmHg Technical Quality: Good Exam Date: 08/14/2024 2:41 PM Exam Location: Echo Lab Exam Room: [facility] Patient Status: Inpatient Admit Date: 08/14/2024 Staff Ordering Physician: Regina Saul PA-C Rigging Man: Mame Davenport RDCS Attending Provider: Fatemeh Yuen MD Referring Physician: Kg ORTIZ; Exam Type: CA echo doppler color flow Study Info Indications - Pulm edema Complete two-dimensional, color flow and Doppler transthoracic echocardiogram is performed. Summary 1. Complete two-dimensional, color flow and Doppler transthoracic echocardiogram is performed. 2. The left ventricle is normal in size with mildly reduced systolic function. The left ventricular ejection fraction is visually estimated to be 40-45%. The entire apex and mid to distal anterior wall is severely hypokinetic. Left Ventricle The left ventricle is normal in size with mildly reduced systolic function. The left ventricular ejection fraction is visually estimated to be 40-45%. The entire apex and mid to distal anterior wall is severely hypokinetic. Right Ventricle The right ventricle is normal in size and systolic function. Left Atria The left atrium is moderately dilated. Right Atria The right atrium is normal size. Atrial Septum The atrial septum visually appears intact. Aortic Valve The aortic valve is trileaflet and opens well. There is no aortic regurgitation. Mitral Valve The mitral valve is grossly normal. There is trace mitral regurgitation. Tricuspid Valve The tricuspid valve is grossly normal. There is mild tricuspid regurgitation. Pericardium/Pleural There is trace amount of pericardial effusion. Inferior Vena Cava Dilated inferior vena cava with >50% collapse upon inspiration consistent with elevated right atrial pressure, 8 mmHg. Aorta The aortic root at the level of the sinus of Valsalva measures 3.1 cm in diameter. Left Ventricular Outflow Tract Name Value Normal LVOT 2D LVOT Diameter 1.9 cm LVOT Doppler LVOT Peak Gradient 4 mmHg LVOT Mean Gradient 2 mmHg LVOT VTI 17 cm LVOT VTI/AV VTI Ratio 0.5 LVOT Stroke Volume 46 ml LVOT CO 5.4 l/min LVOT CI 2.6 l/min/m2 Pulmonic Valve Name Value Normal PV Doppler PV Peak Gradient 5 mmHg PV Regurgitation Doppler MA Peak End Diastolic Velocity 113 cm/s Mitral Valve Name Value Normal MV Doppler MV Peak Gradient 8 mmHg MV Mean Gradient 3 mmHg MV Decel Aiken 861 cm/s2 MV PHT 49 ms MV Area (PHT) 4.5 cm2 4.0-5.0 MV Area (Cont Eq VTI) 1.4 cm2 MV Regurgitation Doppler MR Peak Gradient 123 mmHg MV Diastolic Function MV E Peak Velocity 145 cm/s MV A Peak Velocity 80 cm/s MV E/A 1.8 MV Decel Time 169 ms MV Annular TDI MV E/e' (Septal) 22.1 <=8.0 MV E/e' (Lateral) 20.6 <=8.0 MV E/e' (Average) 21.4 Tricuspid Valve Name Value Normal TV Regurgitation Doppler TR Peak Velocity 428 cm/s TR Peak Gradient 73 mmHg Estimated PAP/RSVP RA Pressure 8 mmHg <=5 PA Systolic Pressure 81 mmHg <36 RV Systolic Pressure 81 mmHg <36 Aortic Valve Name Value Normal AV Doppler AV Peak Velocity 158 cm/s AV Peak Gradient 8 mmHg AV Mean Gradient 4 mmHg AV VTI 35 cm AV Area (Cont Eq VTI) 1.3 cm2 >=3.0 AV Area (Cont Eq [place]) 1.8 cm2 AV Regurgitation 2D LVOT Area 2.7 cm2 AV Regurgitation Doppler AR Decel Time 1,793 ms AR Decel Aiken 202 cm/s2 AR PHT 520 ms Ventricles Name Value Normal LV Dimensions 2D/MM IVS Diastolic Thickness (2D) 0.7 cm 0.6-1.0 LVID Diastole (2D) 5.1 cm 3.8-5.2 LVIW Diastolic Thickness (2D) 0.9 cm 0.6-0.9 LVID Systole (2D) 3.7 cm 2.2-3.5 LVOT Diameter 1.9 cm LV Mass (2D Cubed) 149.36 g 67.00-162.00 LV Mass Index (2D Cubed) 73 g/m2 43-95 Relative Wall Thickness (2D) 0.37 LV Fractional Shortening/Ejection Fraction 2D/MM LV Fractional Shortening (2D) 27 % 27-45 LV EF (2D Teicholz) 52 % 54-74 LV Diastolic Volume (4C MOD) 133 ml LV EF (4C MOD) 49 % LV Diastolic Volume (2C MOD) 168 ml LV EF (2C MOD) 52 % LV Diastolic Volume (BP MOD) 158 ml 46-106 LV Diastolic Volume Index (BP MOD) 77 ml/m2 29-61 LV Systolic Volume (BP MOD) 78 ml 14-42 LV Systolic Volume Index (BP MOD) 38 ml/m2 8-24 LV EF (BP MOD) 50 % 54-74 LV Diastolic Length (4C) 7.8 cm LV Systolic Length (4C) 7.1 cm LV Stroke Volume (4C MOD) 65 ml Atria Name Value Normal LA Dimensions LA Volume (4C A-L) 99 ml LA Volume (BP A-L) 88 ml RA Dimensions RA Area (4C) 15.0 cm2 <=18.0 Report Signatures
[2024-08-14 13:06] LABS: Alveolar/Arterial O2 Gradient 175.3 mmHg; Carboxyhemoglobin 1.1 % THb (0-2.0); Fractional Inspired Oxygen 40 %; HCO3 ABG 25.8 mEq/l (22.0-26.0); Methemoglobin ABG 0.2 %THb (0-1.5); Oxygen Content ABG 16.4 %vol (16.0-22.0); Oxygen Saturation ABG 95.8 % (95.0-100.0); Oxyhemoglobin 94.4 % THb (90.0-100.0); PCO2 ABG 33.4 mmHg (35.0-45.0); PO2 ABG 71.5 mmHg (80.0-100.0); PO2 FiO2 Ratio Arterial Blood 1.79 %; Reduced Hemoglobin 4.3 %THb (0-5.0); Total Hemoglobin 12.3 g/dL (12.0-18.0)
[2024-08-14 13:07] LABS: pH ABG 7.505 (7.350-7.450)
[2024-08-14 13:08] LABS: Device NON-INVASIVE VENT; Modified Allen's Test Pass; Non-Invasive Expiratory Pressure 8 CMH2O; Non-Invasive Inspiratory Pressure 16 CMH2O; Non-Invasive Vent Rate 14 /MIN; Site Drawn LEFT RADIAL
[2024-08-14] MEDS: IPRATROPIUM 0.5 MG/ALBUTEROL SULFATE 2.5 MG AMPUL.NEB 3 ML INHALATION ×2 (13:53→21:05)
[2024-08-14] MEDS: HYDROcodone/acetaminophen (*CRX) 5-325 MG TABLET 1 TAB PO ×2 (14:23→22:29)
[2024-08-14 14:31] LABS: Glucose Point of Care 125 mg/dl (65-105)
--- NOTE | 2024-08-14 14:49 | ADMGEN ---
This patient, Ann Marie Iglesias, was admitted to [facility]. Patient/family oriented to hospital policies and general routines including ID bracelet, bed and alarms, visiting hours, pain management, procedures, bathroom and other care routines, personal items, smoking policy, room service/diet, and visiting hours. Information on how to activate the Rapid Response Team has been discussed. Patient/Family are encouraged to report perceived risks to care and to ask questions if they do not understand what they are told or what they should do.
[2024-08-14 15:39] LABS: Magnesium 1.6 mg/dL (1.6-2.3); Potassium 3.4 mmol/L (3.4-5.0)
[2024-08-14 17:26] LABS: Glucose Point of Care 201 mg/dl (65-105)
[2024-08-14] MEDS: INSULIN ASPART (*BKC) 100 UNITS/ML SUB-Q (17:47)
[2024-08-14] MEDS: hydrOXYzine HCL 25 MG TABLET PO (18:37)
[2024-08-14 20:35] LABS: Glucose Point of Care 184 mg/dl (65-105)
[2024-08-14] MEDS: ATORVASTATIN 40 MG TABLET 80 MG PO (22:29)
[2024-08-14] MEDS: APIXABAN 5 MG TABLET PO (22:30)
[2024-08-14] MEDS: SERTRALINE HCL 50 MG TABLET 100 MG PO (22:30)
[2024-08-14 22:55] LABS: Hemoglobin A1C 6.8 % (<5.7)
[2024-08-15] VITALS (24 sets, daily range): BP systolic 130–174; BP diastolic 50–95; PULSE 86–116; RESP 16–24; TEMP 36.4–37.2; O2SAT 93–100
[2024-08-15] MEDS: IPRATROPIUM 0.5 MG/ALBUTEROL SULFATE 2.5 MG AMPUL.NEB 3 ML INHALATION ×4 (02:18→20:54)
[2024-08-15 04:50] LABS: Basophils Absolute Auto 0.1 K/mm3 (0.0-0.1); Basophils Percent Auto 0.7 % (0.2-1.2); Eosinophils Absolute Auto 0.1 K/mm3 (0-0.3); Eosinophils Percent Auto 1.4 % (0-4.4); Hematocrit 38.9 % (37.0-47.0); Immature Granulocyte Absolute 0.02 K/mm3 (0.00-0.031); Immature Granulocyte Percent A 0.2 % (0-0.5); Lymphocytes Absolute Auto 1.85 K/mm3 (0.9-3.2); Lymphocytes Percent Auto 19.7 % (18.3-44.2); Mean Corpuscular HGB Conc 30.8 g/dl (32-36); Mean Corpuscular Hemoglobin 29.1 pg (26-34); Mean Corpuscular Volume 94.2 fl (80-100); Mean Platelet Volume 10.4 fl (7.4-10.4); Monocytes Absolute Auto 0.7 K/mm3 (0.1-0.6); Monocytes Percent Auto 7.3 % (2.6-8.5); Neutrophils Absolute Auto 6.6 K/mm3 (1.3-6.7); Neutrophils Percent Auto 70.7 % (45.5-73.1); Platelet Count Result 222 k/mm3 (150-375); Red Blood Count 4.13 M/mm3 (4.2-5.4); Red Cell Distribution Width 14.4 % (11.5-14.5); White Blood Count 9.4 K/mm3 (4.5-10.0)
[2024-08-15 05:03] LABS: Anion Gap 14 mmol/L (4-12); Blood Urea Nitrogen 16 mg/dL (7-17); Calcium 9.1 mg/dL (8.4-10.2); Carbon Dioxide 25 mmol/L (22-30); Chloride 100 mmol/L (98-107); Estimated CRCL calculation 55 ml/min; Estimated Glomerular Filt Rate > 60; Glucose 154 mg/dL (65-110); Potassium 3.1 mmol/L (3.4-5.0); Sodium 139 mmol/L (137-145)
[2024-08-15] MEDS: ACETAMINOPHEN 325 MG TABLET 650 MG PO (05:36)
--- NOTE | 2024-08-15 06:19 | ECG_ITS ---
Test Date: 2024-08-15 09:19:43 Measurements Intervals [place] Rate: 100 P: 0 ME: 0 QRS: 16 QRSD: 91 T: 37 QT: 374 QTc: 484 Interpretive Statements SINUS RHYTHM WITH ATRIAL COUPLET AND FREQUENT ATRIAL PREMATURE COMPLEXES LOW QRS VOLTAGE IN PRECORDIAL LEADS BASELINE WANDER- V3-V6 ABNORMAL ECG Compared to ECG 08/14/2024 07:39:05 NO SIGNIFICANT CHANGE Electronically Signed On 08-15-2024 09:39:16 RESOURCE MANAGEMENT SPECIALIST by Dawit Daniels D.O.
[2024-08-15] MEDS: ENALAPRIL MALEATE 10 MG TABLET 20 MG PO (08:29)
[2024-08-15] MEDS: GLIMEPIRIDE 2 MG TABLET PO (08:29)
[2024-08-15] MEDS: APIXABAN 5 MG TABLET PO (08:30)
[2024-08-15] MEDS: hydrOXYzine HCL 25 MG TABLET PO (08:30)
[2024-08-15] MEDS: NIFEdipine 30 MG TAB.ER.24 PO (08:30)
[2024-08-15] MEDS: buPROPion HCL XL (24 HR) 150 MG TABCR 300 MG PO (08:30)
[2024-08-15] MEDS: predniSONE 20 MG TABLET 40 MG PO (08:30)
[2024-08-15] MEDS: ISOSORBIDE MONONITRATE 30 MG TAB.ER.24H PO (08:30)
[2024-08-15] MEDS: CLOPIDOGREL BISULFATE 75 MG TABLET PO (08:30)
[2024-08-15] MEDS: PANTOPRAZOLE 40 MG TABLET PO (08:31)
[2024-08-15] MEDS: FUROSEMIDE INJ 40 MG/4 ML VIAL IV PUSH ×2 (08:31→20:21)
[2024-08-15 08:40] LABS: Glucose Point of Care 142 mg/dl (65-105)
[2024-08-15] MEDS: HYDROcodone/acetaminophen (*CRX) 5-325 MG TABLET 1 TAB PO ×2 (08:42→20:20)
[2024-08-15] MEDS: POTASSIUM CHLORIDE 20 MEQ PACKET (FOR LIQUID) 40 MEQ PO (10:52)
[2024-08-15] MEDS: POTASSIUM CHLORIDE INJ 40 MEQ in SODIUM CHLORIDE 0.9% IV 500 ML 130 MEQ IVPB (10:52)
[2024-08-15 12:25] LABS: Glucose Point of Care 196 mg/dl (65-105)
--- NOTE | 2024-08-15 15:44 | P.PNIM_ITS ---
Progress Note: A&P Assessment and Plan (1) Acute respiratory failure with hypoxia and hypercapnia: Code(s): J96.01 - Acute respiratory failure with hypoxia; J96.02 - Acute respiratory failure with hypercapnia Status: Acute (2) CHF exacerbation: Code(s): I50.9 - Heart failure, unspecified Status: Acute (3) Chronic obstructive pulmonary disease: Code(s): J44.9 - Chronic obstructive pulmonary disease, unspecified Status: Acute (4) Type 2 diabetes mellitus: Code(s): E11.9 - Type 2 diabetes mellitus without complications Status: Acute (5) Hypertension: Code(s): I10 - Essential (primary) hypertension Status: Acute Plan CHF exacerbation Systolic EF 40-45% Continue Lasix, no prior echo on chart to compare EFs thus cardiology consulted COPD exacerbation on baseline oxygen requirement Diffuse wheezing Continue Duoneb treatment and steroid monitor Dm2 SSI with accucheks adjust with clinical course CORTES continue CPAP CAD continue antiplatelets and statin DVT prophylaxis on Eliquis Subjective Date/time seen: 08/15/24 15:44 Interval history: Patient comfortable at bedside and on baseline oxygen ECHO EF 40-45% with severely hypokinetic apex and mid to distal anterior wall wheezing at bedside Review of Systems Review of Systems: 12 systems were reviewed and are negativ e except for as per HPI. Exam Narrative: General: Nontoxic-appearing female in the semi-Giordano position in bed in no acute distress. Weight: 84.8 kg. BMI: 29.3. HEENT: PERRL, EOMI. Sclera anicteric. Oral mucosa moist. Oropharynx clear. Neck: Supple. No JVD. Respiratory: Mild conversational dyspnea though she appears in no acute respiratory distress and she is speaking freely without problems. Lung sounds are diminished throughout with fine crackles and expiratory wheezing. Cardiovascular: Regular rate and rhythm with S1-S2. Gastrointestinal: Abdomen is soft, nontender, and nondistended with positive bowel sounds. Skin: Warm and dry. No rash or lesions on limited exam. Extremities: No cyanosis, clubbing, or significant edema. Radial and pedal pulses intact. No palpable knots or cords. Negative Goyo sign bilaterally. Neurological: Alert. Cranial nerves 2-12 are grossly intact. No gross focal deficits to casual conversation. Psychiatric: Pleasant and cooperative with normal mood and affect. Judgment and insight intact. She is in good spirits. Objective Data Vital Signs Vital Signs: Vital Signs - 24 hr 08/14/24 16:00 08/14/24 16:00 08/14/24 16:00 Temperature Pulse Rate 90 90 Respiratory Rate 18 Blood Pressure 136/90 Pulse Oximetry 94 94 Oxygen Delivery Nasal Cannula Oxygen Flow Rate 2 08/14/24 17:26 08/14/24 18:00 08/14/24 20:00 Temperature 98.4 F Pulse Rate 98 110 H Respiratory Rate 20 Blood Pressure 151/74 H Pulse Oximetry 95 93 Oxygen Delivery Nasal Cannula Oxygen Flow Rate 2.5 08/14/24 20:00 08/14/24 20:23 08/14/24 21:06 Temperature 98.2 F Pulse Rate 98 73 Respiratory Rate 20 Blood Pressure 158/66 H Pulse Oximetry 94 93 Oxygen Delivery Nasal Cannula Oxygen Flow Rate 3 08/14/24 21:06 08/14/24 21:15 08/14/24 22:00 Temperature Pulse Rate 90 102 H 94 Respiratory Rate 24 H 24 H Blood Pressure Pulse Oximetry Oxygen Delivery Oxygen Flow Rate 08/14/24 23:24 08/15/24 00:00 08/15/24 00:14 Temperature 98.3 F Pulse Rate 93 104 H Respiratory Rate 20 Blood Pressure 165/95 H Pulse Oximetry 93 94 Oxygen Delivery Nasal Cannula Oxygen Flow Rate 2.5 08/15/24 02:00 08/15/24 02:18 08/15/24 02:23 Temperature Pulse Rate 98 108 H 92 Respiratory Rate 24 H 24 H Blood Pressure Pulse Oximetry Oxygen Delivery Oxygen Flow Rate 08/15/24 03:43 08/15/24 03:50 08/15/24 04:00 Temperature 97.8 F Pulse Rate 113 H 104 H Respiratory Rate 20 Blood Pressure 156/64 H Pulse Oximetry 95 95 Oxygen Delivery Nasal Cannula Oxygen Flow Rate 2.5 08/15/24 06:00 08/15/24 08:09 08/15/24 08:46 Temperature 98.9 F Pulse Rate 95 95 107 H Respiratory Rate 20 18 Blood Pressure 165/85 H Pulse Oximetry 99 95 Oxygen Delivery Nasal Cannula Oxygen Flow Rate 2 08/15/24 08:47 08/15/24 08:56 08/15/24 12:00 Temperature 97.6 F Pulse Rate 107 H 95 112 H Respiratory Rate 20 20 22 H Blood Pressure 136/76 Pulse Oximetry 96 Oxygen Delivery Oxygen Flow Rate 08/15/24 15:17 Temperature Pulse Rate 99 Respiratory Rate 20 Blood Pressure Pulse Oximetry Oxygen Delivery Oxygen Flow Rate Intake/Output Intake/Output: Intake & Output 08/12/24 08/13/24 08/14/24 08/15/24 23:59 23:59 23:59 23:59 Intake Total 540 780 Output Total 1800 2550 Balance -1260 -1770 Meds/Results Medications: Active Medications Generic Name Dose Route Start Last Admin Trade Name Freq PRN Reason Stop Dose Admin Acetaminophen 650 mg 08/14/24 10:21 08/15/24 05:36 Acetaminophen 325 Mg Tablet PO 650 mg Q4H PRN Administration Mild Pain (1-3) or Fever Hydrocodone Bitart/Acetaminophen 1 tab 08/14/24 10:21 08/15/24 08:42 Hydrocodone/Acetaminophen (*Crx) 5-325 Mg Tablet PO 1 tab Q4H PRN Administration Pain Rated 4-6 Albuterol/Ipratropium 3 ml 08/14/24 14:00 08/15/24 15:16 Ipratropium 0.5 Mg/Albuterol Sulfate 2.5 Mg Ampul.Neb 3 Ml INHALATION 3 ml Q6HRT BRODIE Administration Apixaban 5 mg 08/14/24 21:00 08/15/24 08:30 Apixaban 5 Mg Tablet PO 5 mg DAILY BRODIE Administration Atorvastatin Calcium 80 mg 08/14/24 21:00 08/14/24 22:29 Atorvastatin 40 Mg Tablet PO 80 mg QPM BRODIE Administration Bupropion HCl 300 mg 08/15/24 09:00 08/15/24 08:30 Bupropion Hcl Xl (24 Hr) 150 Mg Tabcr PO 300 mg DAILY BRODIE Administration Clopidogrel Bisulfate 75 mg 08/15/24 09:00 08/15/24 08:30 Clopidogrel Bisulfate 75 Mg Tablet PO 75 mg DAILY BRODIE Administration Dextrose 12.5 gm 08/14/24 12:54 Dextrose 50% 25 Gm/50 Ml Syringe IV PUSH PRN PRN Hypoglycemia Protocol Enalapril Maleate 20 mg 08/15/24 09:00 08/15/24 08:29 Enalapril Maleate 10 Mg Tablet PO 20 mg QAM BRODIE Administration Furosemide 40 mg 08/14/24 21:00 08/15/24 08:31 Furosemide Inj 40 Mg/4 Ml Vial IV PUSH 40 mg Q12HR BRODIE Administration Glimepiride 2 mg 08/15/24 09:00 08/15/24 08:29 Glimepiride 2 Mg Tablet PO 2 mg DAILY BRODIE Administration Glucagon 1 mg 08/14/24 12:54 Glucagon For Inj 1 Mg Vial IM PRN PRN Hypoglycemia Protocol Glucose 15 gm 08/14/24 12:54 Glucose Oral Gel 15 Gm Of Glucse In 37.5 Gm Tube PO PRN PRN Hypoglycemia Protocol Hydroxyzine HCl 25 mg 08/15/24 09:00 08/15/24 08:30 Hydroxyzine Hcl 25 Mg Tablet PO 25 mg DAILY BRODIE Administration Dextrose 1,000 mls @ 100 mls/hr 08/14/24 12:54 Dextrose 5% 1,000 Ml IVPB PRN PRN Hypoglycemia Protocol Insulin Aspart 1 - 3 units 08/14/24 21:00 08/14/24 21:06 Insulin Aspart (*Bkc) 100 Units/Ml SUB-Q Not Given HS BRODIE Protocol Insulin Aspart 3 - 6 units 08/14/24 17:00 08/15/24 11:00 Insulin Aspart (*Bkc) 100 Units/Ml SUB-Q Not Given TIDWM BRODIE Protocol Isosorbide Mononitrate 30 mg 08/15/24 09:00 08/15/24 08:30 Isosorbide Mononitrate 30 Mg Tab.Er.24h PO 30 mg DAILY BRODIE Administration Nifedipine 30 mg 08/15/24 09:00 08/15/24 08:30 Nifedipine 30 Mg Tab.Er.24 PO 30 mg DAILY BRODIE Administration Ondansetron HCl 4 mg 08/14/24 10:21 Ondansetron Inj 4 Mg/2 Ml Vial IV PUSH Q4H PRN Nausea Pantoprazole Sodium 40 mg 08/15/24 09:00 08/15/24 08:31 Pantoprazole 40 Mg Tablet PO 40 mg DAILY BRODIE Administration Perflutren Lipid Microsphere 0 ml 08/14/24 12:54 Perflutren Lipid Microspheres 1.5 Ml Vial Diluted To 10 Ml Total Volume IV P USH 08/17/24 12:54 ONCE PRN adequate visualization Protocol Prednisone 40 mg 08/15/24 08:00 08/15/24 08:30 Prednisone 20 Mg Tablet PO 08/19/24 08:01 40 mg DAILY@0800 BRODIE Administration Sertraline HCl 100 mg 08/14/24 21:00 08/14/24 22:30 Sertraline Hcl 50 Mg Tablet PO 100 mg Q24H BRODIE Administration Radiology Results: ITS Impressions Chest X-Ray 08/14/24 08:05 Impression: 1: Cardiomegaly with pulmonary edema. Labs Labs: Laboratory Results - last 24 hr 08/14/24 08/14/24 08/14/24 15:18 17:21 20:27 WBC RBC Hgb Hct MCV MCH MCHC RDW Plt Count MPV Immature Gran % (Auto) Neut % (Auto) Lymph % (Auto) [place] % (Auto) Eos % (Auto) Baso % (Auto) Lymph # (Auto) [place] # (Auto) Eos # (Auto) Baso # (Auto) Abs Immat Gran (auto) Absolute Neuts (auto) Absolute Nucleated RBC Nucleated RBC % Sodium Potassium Chloride Carbon Dioxide Anion Gap BUN Creatinine Estim Creat Clear Calc Estimated GFR Glucose POC Capillary Glucose 201 H 184 H Hemoglobin A1c 6.8 H Calcium 08/15/24 08/15/24 08/15/24 04:44 07:26 11:00 WBC 9.4 RBC 4.13 L Hgb 12.0 Hct 38.9 MCV 94.2 MCH 29.1 MCHC 30.8 L RDW 14.4 Plt Count 222 MPV 10.4 Immature Gran % (Auto) 0.2 Neut % (Auto) 70.7 Lymph % (Auto) 19.7 [place] % (Auto) 7.3 Eos % (Auto) 1.4 Baso % (Auto) 0.7 Lymph # (Auto) 1.85 [place] # (Auto) 0.7 H Eos # (Auto) 0.1 Baso # (Auto) 0.1 Abs Immat Gran (auto) 0.02 Absolute Neuts (auto) 6.6 Absolute Nucleated RBC 0.000 Nucleated RBC % 0.0 Sodium 139 Potassium 3.1 L Chloride 100 Carbon Dioxide 25 Anion Gap 14 H BUN 16 Creatinine 0.83 Estim Creat Clear Calc 55 Estimated GFR > 60 Glucose 154 H POC Capillary Glucose 142 H 196 H Hemoglobin A1c Calcium 9.1 Quality VTE Prophylaxis VTE prophylaxis: pharmacologic ordered (on apixaban)
[2024-08-15 15:56] LABS: Glucose Point of Care 315 mg/dl (65-105)
[2024-08-15] MEDS: ATORVASTATIN 40 MG TABLET 80 MG PO (17:05)
[2024-08-15] MEDS: INSULIN ASPART (*BKC) 100 UNITS/ML SUB-Q (17:06)
[2024-08-15 20:19] LABS: Glucose Point of Care 195 mg/dl (65-105)
[2024-08-15] MEDS: SERTRALINE HCL 50 MG TABLET 100 MG PO (20:21)
[2024-08-15] MEDS: FLUTICASONE/SALMETEROL 45-21 MCG INHALER 1 PUFF 2 PUFF INHALATION (20:54)
--- NOTE | 2024-08-15 23:20 | ECG_ITS ---
Test Date: 2024-08-15 06:24:42 Measurements Intervals [place] Rate: 105 P: 83 ME: 213 QRS: 38 QRSD: 92 T: 54 QT: 344 QTc: 456 Interpretive Statements SINUS RHYTHM WITH FIRST DEGREE AV BLOCK WITH ATRIAL TRIPLET, ATRIAL COUPLETS AND ATRIAL PREMATURE COMPLEXES LOW QRS VOLTAGE IN PRECORDIAL LEADS CONSIDER INFERIOR INFARCT, AGE INDETERMINATE BASELINE ARTIFACT- I, II, III, AVR, AVL, AVF, V1-V6 ABNORMAL ECG Compared to ECG 08/14/2024 07:39:05 FREQUENT ATRIAL PREMATURE COMPLEXES NOW PRESENT Electronically Signed On 08-16-2024 06:24:35 CLIENT DELIVERY MANAGER by Dawit Daniels D.O.
--- NOTE | 2024-08-15 23:29 | ECG_ITS ---
Test Date: 2024-08-15 23:35:47 Measurements Intervals [place] Rate: 101 P: 0 IL: 0 QRS: 0 QRSD: 89 T: 18 QT: 285 QTc: 371 Interpretive Statements SINUS RHYTHM WITH ATRIAL COUPLET AND ATRIAL PREMATURE COMPLEXES LOW QRS VOLTAGE IN PRECORDIAL LEADS CONSIDER ANTERIOR INFARCT, AGE INDETERMINATE BASELINE ARTIFACT- II, III, AVR, AVL, AVF ABNORMAL ECG Compared to ECG 08/15/2024 09:19:43 NO SIGNIFICANT CHANGE Electronically Signed On 08-16-2024 06:26:15 CARD FIXER by Dawit Daniels D.O.
[2024-08-16] VITALS (29 sets, daily range): BP systolic 130–175; BP diastolic 65–100; PULSE 85–139; RESP 20; TEMP 36.6–37.1; O2SAT 94–98
[2024-08-16 01:11] LABS: Albumin Level 3.8 g/dL (3.5-5.1); Anion Gap 13 mmol/L (4-12); Blood Urea Nitrogen 21 mg/dL (7-17); Carbon Dioxide 26 mmol/L (22-30); Chloride 101 mmol/L (98-107); Estimated CRCL calculation 39 ml/min; Estimated Glomerular Filt Rate 44; Glucose 181 mg/dL (65-110); Magnesium 1.4 mg/dL (1.6-2.3); Phosphorus 2.5 mg/dL (2.5-4.5); Potassium 3.3 mmol/L (3.4-5.0); Sodium 140 mmol/L (137-145)
[2024-08-16] MEDS: POTASSIUM CHLORIDE 20 MEQ PACKET (FOR LIQUID) 40 MEQ PO (02:30)
[2024-08-16] MEDS: MAGNESIUM SULFATE 3GM/D5W100ML 3 GM/100 ML BAG IVPB (02:30)
[2024-08-16] MEDS: IPRATROPIUM 0.5 MG/ALBUTEROL SULFATE 2.5 MG AMPUL.NEB 3 ML INHALATION ×4 (02:32→21:32)
[2024-08-16] MEDS: POTASSIUM CHLORIDE INJ 40 MEQ in SODIUM CHLORIDE 0.9% IV 500 ML 130 MEQ IVPB (03:30)
[2024-08-16 05:05] LABS: Basophils Percent Auto 0.3 % (0.2-1.2); Eosinophils Absolute Auto 0.1 K/mm3 (0-0.3); Eosinophils Percent Auto 0.6 % (0-4.4); Hematocrit 35.9 % (37.0-47.0); Hemoglobin 11.2 g/dL (12.0-15.0); Immature Granulocyte Absolute 0.03 K/mm3 (0.00-0.031); Immature Granulocyte Percent A 0.3 % (0-0.5); Lymphocytes Absolute Auto 2.39 K/mm3 (0.9-3.2); Lymphocytes Percent Auto 23.6 % (18.3-44.2); Mean Corpuscular HGB Conc 31.2 g/dl (32-36); Mean Corpuscular Hemoglobin 29.1 pg (26-34); Mean Corpuscular Volume 93.2 fl (80-100); Mean Platelet Volume 10.1 fl (7.4-10.4); Monocytes Absolute Auto 0.8 K/mm3 (0.1-0.6); Monocytes Percent Auto 7.5 % (2.6-8.5); Neutrophils Absolute Auto 6.8 K/mm3 (1.3-6.7); Neutrophils Percent Auto 67.7 % (45.5-73.1); Platelet Count Result 231 k/mm3 (150-375); Red Blood Count 3.85 M/mm3 (4.2-5.4); Red Cell Distribution Width 14.6 % (11.5-14.5); White Blood Count 10.1 K/mm3 (4.5-10.0)
[2024-08-16 05:15] LABS: Lactic Acid Reflex 2.2 mmol/L (0.7-2.0)
[2024-08-16 05:17] LABS: Alanine Aminotransferase 15 U/L (6-35); Albumin Level 4.1 g/dL (3.5-5.1); Alkaline Phosphatase 70 U/L (38-126); Anion Gap 11 mmol/L (4-12); Aspartate Amino Transferase 19 U/L (14-36); Bilirubin,Total 0.6 mg/dL (0.2-1.3); Blood Urea Nitrogen 20 mg/dL (7-17); Calcium 9.1 mg/dL (8.4-10.2); Carbon Dioxide 29 mmol/L (22-30); Chloride 101 mmol/L (98-107); Estimated CRCL calculation 41 ml/min; Estimated Glomerular Filt Rate 47; Glucose 162 mg/dL (65-110); Magnesium 2.4 mg/dL (1.6-2.3); Potassium 3.9 mmol/L (3.4-5.0); Sodium 141 mmol/L (137-145)
[2024-08-16] MEDS: HYDROcodone/acetaminophen (*CRX) 5-325 MG TABLET 1 TAB PO ×3 (05:43→22:28)
[2024-08-16 07:43] LABS: Glucose Point of Care 128 mg/dl (65-105)
[2024-08-16 08:02] LABS: Reflex Lactic Acid Yes or No Add Lactic
[2024-08-16] MEDS: FLUTICASONE/SALMETEROL 45-21 MCG INHALER 1 PUFF 2 PUFF INHALATION ×2 (08:45→21:35)
[2024-08-16 08:59] LABS: Lactic Acid 1.8 mmol/L (0.7-2.0)
[2024-08-16] MEDS: GLIMEPIRIDE 2 MG TABLET PO (10:06)
[2024-08-16] MEDS: ENALAPRIL MALEATE 10 MG TABLET 20 MG PO (10:06)
[2024-08-16] MEDS: PANTOPRAZOLE 40 MG TABLET PO (10:06)
[2024-08-16] MEDS: buPROPion HCL XL (24 HR) 150 MG TABCR 300 MG PO (10:06)
[2024-08-16] MEDS: NIFEdipine 30 MG TAB.ER.24 PO (10:06)
[2024-08-16] MEDS: CLOPIDOGREL BISULFATE 75 MG TABLET PO (10:07)
[2024-08-16] MEDS: ISOSORBIDE MONONITRATE 30 MG TAB.ER.24H PO (10:07)
[2024-08-16] MEDS: predniSONE 20 MG TABLET 40 MG PO (10:07)
[2024-08-16] MEDS: hydrOXYzine HCL 25 MG TABLET PO (10:07)
[2024-08-16] MEDS: FUROSEMIDE INJ 40 MG/4 ML VIAL IV PUSH (10:08)
[2024-08-16] MEDS: APIXABAN 5 MG TABLET PO ×2 (10:08→22:27)
--- NOTE | 2024-08-16 11:19 | ECG_ITS ---
Test Date: 2024-08-16 11:35:56 Measurements Intervals [place] Rate: 109 P: 0 SC: 0 QRS: 16 QRSD: 78 T: 30 QT: 324 QTc: 436 Interpretive Statements SINUS TACHYCARDIA WITH ATRIAL PREMATURE COMPLEXES LOW QRS VOLTAGE IN PRECORDIAL LEADS BASELINE ARTIFACT- I, II, III, AVR, AVL, AVF, V1-V6 ABNORMAL ECG Compared to ECG 08/15/2024 23:35:47 HEART RATE HAS INCREASED Electronically Signed On 08-16-2024 11:44:46 TAPPET ADJUSTER by Dawit Daniels D.O.
--- NOTE | 2024-08-16 11:25 | PM.CNCAR ---
Assessment and Plan Assessment and plan (1) CHF exacerbation: Code(s): I50.9 - Heart failure, unspecified Status: Acute (2) Chronic obstructive pulmonary disease: Code(s): J44.9 - Chronic obstructive pulmonary disease, unspecified Status: Acute Plan 1. Complex coronary artery disease 02/13/2018 NSTEMI. LHC at [facility] showed high grade triple vessel CAD. Transferred to [facility] for evaluation of CABG but patient opted for complex PCI 02/20/2018 Complex PCI to the LAD with 2.75mm x 38mm Promus Synergy and 3.0mm x 20mm Promus Synergy in mid and proximal portion of LAD. Planned for staged PCI of OM and RCA afterwards. 03/29/2018 Underwent staged PCI of heavily calcified proximal and mid RCA with a 2.5mm x 38mm Promus Synergy SASHA stent in the proximal and mid RCA and an overlapping 3.0mm x 24mm Promus Synergy SASHA in the proximal RCA. Residual CAD of the RPDA and OM2 that was medically managed. 01/13/2022: Successful laser atherectomy and Shockwave lithotripsy with subsequent Orsiro 3.0mm x 12mm SASHA in the ostial LCX. 2. Paroxysmal atrial fibrillation. First diagnosed in January 2018 at time of her NSTEMI. Amiodarone was stopped due to lack of necessity and prolongation of QTc. 3. Acute on chronic heart failure with mildly reduced LVEF. Echocardiograms in 2018 showed LVEF 40-46% with multiple wall motion abnormalities. Echocardiogram since then with LVEF 50%. Echocardiogram this admission shows LVEF 40-45% with hypokinesis of the mid-distal anterior wall and apex. 4. Severe bilateral peripheral arterial disease s/p multiple interventions 5. Hypertension 6. Hyperlipidemia 7. Type 2 diabetes mellitus 8. COPD, acute exacerbation PLAN: -Management of acute COPD exacerbation by primary team. -Patient overall appears euvolemic now. Stop IV Lasix and transition to PO Lasix. -As for CAD, continue high intensity statin and Eliquis. Continue Imdur. -As for heart failure GDMT, continue Enalapril. I am going to stop her Nifedipine to allow room for addition of heart failure GDMT. Adding Toprol, Jardiance, Spironolactone. Uptitrate as tolerated. -Frequent ectopy noted on tele. Adding Toprol. -Needs to follow up with her Information Assurance Officer after hospital discharge. Significant amount of time spent reviewing outside records from [facility]. Of note, given her complex CAD and severe PAD, if patient does need cardiac catheterization in the future, would be better served at a tertiary center rather than [facility]. For her last cardiac cath at [facility], it had to be done with the Anesthesia team for sedation as she was not able to otherwise tolerate it. History of Present Illness History of Present Illness Consult date/time: 08/16/24 11:25 Requesting physician: Paula Dolan MD Consult reason: congestive heart failure Reason For Visit: chf exacerbation, respiratory failure Narrative: We are consulted for CHF. This is a 79 year old female with the following history: 1. Complex coronary artery disease 02/13/2018 NSTEMI. LHC at [facility] showed high grade triple vessel CAD. Transferred to [facility] for evaluation of CABG but patient opted for complex PCI 02/20/2018 Complex PCI to the LAD with 2.75mm x 38mm Promus Synergy and 3.0mm x 20mm Promus Synergy in mid and proximal portion of LAD. Planned for staged PCI of OM and RCA afterwards. 03/29/2018 Underwent staged PCI of heavily calcified proximal and mid RCA with a 2.5mm x 38mm Promus Synergy SASHA stent in the proximal and mid RCA and an overlapping 3.0mm x 24mm Promus Synergy SASHA in the proximal RCA. Residual CAD of the RPDA and OM2 that was medically managed. 01/13/2022: Successful laser atherectomy and Shockwave lithotripsy with subsequent Orsiro 3.0mm x 12mm SASHA in the ostial LCX. 2. Paroxysmal atrial fibrillation. First diagnosed in January 2018 at time of her NSTEMI. Amiodarone was stopped due to lack of necessity and prolongation of QTc. 3. Chronic heart failure with mildly reduced LVEF. Echocardiograms in 2018 showed LVEF 40-46% with multiple wall motion abnormalities. Echocardiogram since then with LVEF 50%. Echocardiogram this admission shows LVEF 40-45% with hypokinesis of the mid-distal anterior wall and apex. 4. Severe bilateral peripheral arterial disease s/p multiple interventions 5. Hypertension 6. Hyperlipidemia 7. Type 2 diabetes mellitus 8. COPD Patient's machine operator general was Dr. Dumont at [facility] but has not seen him since 2021. Admitted to [facility] on 08/14 for shortness of breath, found to have COPD exacerbation. Admitted for further management. CXR with some pulmonary edema, therefore, was given IV Lasix. Echocardiogram this admission shows LVEF 40-45% with hypokinesis of the mid-distal anterior wall and apex. Review of Systems Review of Systems: All systems reviewed & are unremarkable except as noted in HPI and below (HPI) [facility] Past Medical History Medical History (Updated 08/15/24 @ 09:25 by Giacomo Jones MD) Chronic obstructive pulmonary disease Chronic respiratory failure with hypoxia, on home oxygen therapy Congestive heart failure Type 2 diabetes mellitus Obstructive sleep apnea Coronary artery disease Hypertension Myocardial infarct Surgical History Surgical History (Updated 08/14/24 @ 21:33 by Regina Saul PA-C) History of intravascular stent placement bilateral lower extremities History of coronary artery stent placement Social History Social History (Updated 08/14/24 @ 21:33 by Regina Saul PA-C) Social History: Surrogate medical decision maker: Prachi Murphy, daughter. Code status: Full code. Smoking status: Former smoker Tobacco type: cigarettes Smoking end date: 06/26/17 Alcohol intake: never Substance use: never Substance use type: does not use Do You Feel Safe in your Home?: Yes Lack of Transportation: No Lack of Food: Never True Current Housing: I Have Housing Concerned About Future Housing: No Difficulty Paying Gas/Electric Bills: No Difficulty Paying for Meds: No Currently Unemployed: No Education: High School Diploma/GED Difficulty w/ Childcare or Family Care: No Spiritual care concerns: No Meds Home Medications and Allergies Home Medications ?Medication ?Instructions ?Recorded ?Confirmed ?Type albuterol sulfate 90 mcg/actuation 2 puff inhalation PRN 08/14/24 08/14/24 History aerosol inhaler apixaban 5 mg tablet (Eliquis) 5 mg PO DAILY 08/14/24 08/14/24 History atorvastatin 80 mg tablet 80 mg PO QPM 08/14/24 08/14/24 History bupropion HCl 300 mg 24 hr tablet, 300 mg PO DAILY 08/14/24 08/14/24 History extended release clopidogrel 75 mg tablet 75 mg PO DAILY 08/14/24 08/14/24 History enalapril maleate 20 mg tablet 20 mg PO DAILY 08/14/24 08/14/24 History furosemide 40 mg tablet 40 mg PO DAILY 08/14/24 08/14/24 History glimepiride 2 mg tablet 2 mg PO DAILY 08/14/24 08/14/24 History hydrocodone 5 mg-acetaminophen 325 1 tablet PO PRN PRN pain 08/14/24 08/14/24 History mg tablet hydroxyzine HCl 25 mg tablet 25 mg PO DAILY 08/14/24 08/14/24 History isosorbide mononitrate 30 mg 30 mg PO DAILY 08/14/24 08/14/24 History tablet,extended release 24 hr loperamide 2 mg capsule 2 mg PO PRN 08/14/24 08/14/24 History nifedipine 30 mg tablet,extended 30 mg PO DAILY 08/14/24 08/14/24 History release 24 hr pantoprazole 40 mg tablet,delayed 40 mg PO DAILY 08/14/24 08/14/24 History release sertraline 100 mg tablet 100 mg PO Q24H 08/14/24 08/14/24 History Allergies Allergy/AdvReac Type Severity Reaction Status Date / Time No Known Allergies Allergy Verified 08/14/24 08:06 Vital Signs Vital Signs - 24 hr 08/15/24 12:00 08/15/24 12:00 08/15/24 12:00 Temperature 36.4 C Pulse Rate 112 H 108 H Respiratory Rate 22 H Blood Pressure 136/76 Pulse Oximetry 96 96 Oxygen Delivery Nasal Cannula Oxygen Flow Rate 2 08/15/24 14:00 08/15/24 15:17 08/15/24 16:00 Temperature 36.8 C Pulse Rate 99 99 86 Respiratory Rate 20 20 Blood Pressure 130/50 L Pulse Oximetry 100 Oxygen Delivery Oxygen Flow Rate 08/15/24 16:00 08/15/24 16:00 08/15/24 18:00 Temperature Pulse Rate 94 116 H Respiratory Rate Blood Pressure Pulse Oximetry 100 Oxygen Delivery Nasal Cannula Oxygen Flow Rate 2 08/15/24 20:00 08/15/24 20:00 08/15/24 20:00 Temperature 36.8 C Pulse Rate 101 H 108 H Respiratory Rate 16 Blood Pressure 174/74 H Pulse Oximetry 93 95 Oxygen Delivery Nasal Cannula Oxygen Flow Rate 2 08/15/24 20:54 08/15/24 21:11 08/15/24 21:11 Temperature Pulse Rate 92 89 Respiratory Rate 20 20 Blood Pressure Pulse Oximetry 95 Oxygen Delivery Nasal Cannula Oxygen Flow Rate 2 08/15/24 22:00 08/16/24 00:00 08/16/24 00:11 Temperature 36.6 C Pulse Rate 109 H 101 H 128 H Respiratory Rate 20 Blood Pressure 161/72 H Pulse Oximetry 98 Oxygen Delivery Oxygen Flow Rate 08/16/24 00:27 08/16/24 02:00 08/16/24 02:33 Temperature Pulse Rate 105 H 95 Respiratory Rate 20 Blood Pressure Pulse Oximetry 98 Oxygen Delivery Nasal Cannula Oxygen Flow Rate 2 08/16/24 04:00 08/16/24 04:00 08/16/24 04:59 Temperature 37.1 C Pulse Rate 105 H 110 H Respiratory Rate 20 Blood Pressure 175/81 H Pulse Oximetry 97 97 Oxygen Delivery Nasal Cannula Oxygen Flow Rate 2 08/16/24 06:00 08/16/24 08:04 08/16/24 08:45 Temperature 37.1 C Pulse Rate 100 92 Respiratory Rate 20 Blood Pressure 167/76 H Pulse Oximetry 98 95 Oxygen Delivery Nasal Cannula Oxygen Flow Rate 2 08/16/24 08:45 08/16/24 09:02 Temperature Pulse Rate 102 H 99 Respiratory Rate 20 20 Blood Pressure Pulse Oximetry Oxygen Delivery Oxygen Flow Rate Exam Const: General: comfortable and no acute distress HENMT: Mouth: Yes moist mucous membranes Eyes: General: appearance normal, both eyes and all related structures Sclera: sclerae normal Resp: Effort & Inspection: normal respiratory effort Auscultation: clear to auscultation bilaterally Cardio: Rate: tachycardic Rhythm: abnormal rhythm irregularly irregular Heart sounds: no murmurs Skin: General skin exam: normal color Psych: Mental Status: mental status grossly normal Affect: normal affect Results Labs and Meds 08/16/24 04:58 08/16/24 04:58 Lab results: Cardiac Enzymes 08/16/24 Range/Units 04:58 AST 19 (14-36) U/L CBC 08/16/24 Range/Units 04:58 WBC 10.1 H (4.5-10.0) K/mm3 RBC 3.85 L (4.2-5.4) M/mm3 Hgb 11.2 L (12.0-15.0) g/dL Hct 35.9 L (37.0-47.0) % Plt Count 231 (150-375) k/mm3 Lymph # (Auto) 2.39 (0.9-3.2) K/mm3 Moore # (Auto) 0.8 H (0.1-0.6) K/mm3 Eos # (Auto) 0.1 (0-0.3) K/mm3 Baso # (Auto) 0.0 (0.0-0.1) K/mm3 Comprehensive Metabolic Panel 08/16/24 08/16/24 Range/Units 00:57 04:58 Sodium 140 141 (137-145) mmol/L Potassium 3.3 L 3.9 (3.4-5.0) mmol/L Chloride 101 101 (98-107) mmol/L Carbon Dioxide 26 29 (22-30) mmol/L BUN 21 H 20 H (7-17) mg/dL Creatinine 1.19 H 1.13 H (0.7-1.0) mg/dL Glucose 181 H 162 H (65-110) mg/dL Calcium 9.0 9.1 (8.4-10.2) mg/dL AST 19 (14-36) U/L ALT 15 (6-35) U/L Alkaline Phosphatase 70 (38-126) U/L Total Protein 7.0 (6.3-8.2) g/dL Albumin 3.8 4.1 (3.5-5.1) g/dL Intake and Output 08/15/24 08/16/24 08/16/24 23:59 07:59 15:59 Intake Total 690 550 Output Total 1400 Balance 690 -850 Intake: Oral 690 550 Output: Urine 1400 Other: Number of Bowel Movements Today 1 Patient Weight 08/16/24 23:59 Weight 82.6 kg
[2024-08-16 11:41] LABS: Glucose Point of Care 192 mg/dl (65-105)
[2024-08-16] MEDS: METOPROLOL SUCCINATE EXT REL 50 MG TABCR PO (12:10)
[2024-08-16] MEDS: EMPAGLIFLOZIN 10 MG TABLET PO (12:10)
[2024-08-16] MEDS: SODIUM CHLORIDE 0.9% IV 500 ML 166 ML IV CONT (12:11)
[2024-08-16 15:52] LABS: Glucose Point of Care 311 mg/dl (65-105)
--- NOTE | 2024-08-16 16:16 | PM.IMPN ---
Progress Note: A&P Assessment and Plan (1) Acute respiratory failure with hypoxia and hypercapnia: Code(s): J96.01 - Acute respiratory failure with hypoxia; J96.02 - Acute respiratory failure with hypercapnia Status: Acute (2) CHF exacerbation: Code(s): I50.9 - Heart failure, unspecified Status: Acute (3) Chronic obstructive pulmonary disease: Code(s): J44.9 - Chronic obstructive pulmonary disease, unspecified Status: Acute (4) Type 2 diabetes mellitus: Code(s): E11.9 - Type 2 diabetes mellitus without complications Status: Acute (5) Hypertension: Code(s): I10 - Essential (primary) hypertension Status: Acute Plan CHF exacerbation Systolic EF 40-45% Continue Lasix, Continue Enalpril and stop Nifedipine per cardiology to allow for titration of other guideline therapy cardiology following COPD exacerbation on baseline oxygen requirement Diffuse wheezing Continue Duoneb treatment and steroid monitor Dm2 SSI with accucheks adjust with clinical course CORTES continue CPAP CAD continue antiplatelets and statin DVT prophylaxis on Eliquis PT/OT for discharge disposition Subjective Date/time seen: 08/16/24 16:16 Interval history: Patient comfortable at bedside and on baseline oxygen wheezing at bedside Awaiting PT/OT eval for discharge disposition Review of Systems Review of Systems: 12 systems were reviewed and are negative except for as per HPI. Exam Narrative: General: Nontoxic-appearing female in the semi-Giordano position in bed in no acute distress. Weight: 84.8 kg. BMI: 29.3. HEENT: PERRL, EOMI. Sclera anicteric. Oral mucosa moist. Oropharynx clear. Neck: Supple. No JVD. Respiratory: Mild conversational dyspnea though she appears in no acute respiratory distress and she is speaking freely without problems. Lung sounds are diminished throughout with fine crackles and expiratory wheezing. Cardiovascular: Regular rate and rhythm with S1-S2. Gastrointestinal: Abdomen is soft, nontender, and nondistended with positive bowel sounds. Skin: Warm and dry. No rash or lesions on limited exam. Extremities: No cyanosis, clubbing, or significant edema. Radial and pedal pulses intact. No palpable knots or cords. Negative Goyo sign bilaterally. Neurological: Alert. Cranial nerves 2-12 are grossly intact. No gross focal deficits to casual conversation. Psychiatric: Pleasant and cooperative with normal mood and affect. Judgment and insight intact. She is in good spirits. Objective Data Vital Signs Vital Signs: Vital Signs - 24 hr 08/15/24 18:00 08/15/24 20:00 08/15/24 20:00 Temperature 98.2 F Pulse Rate 116 H 101 H Respiratory Rate 16 Blood Pressure 174/74 H Pulse Oximetry 93 95 Oxygen Delivery Nasal Cannula Oxygen Flow Rate 2 08/15/24 20:00 08/15/24 20:54 08/15/24 21:11 Temperature Pulse Rate 108 H 92 89 Respiratory Rate 20 20 Blood Pressure Pulse Oximetry Oxygen Delivery Oxygen Flow Rate 08/15/24 21:11 08/15/24 22:00 08/16/24 00:00 Temperature Pulse Rate 109 H 101 H Respiratory Rate Blood Pressure Pulse Oximetry 95 Oxygen Delivery Nasal Cannula Oxygen Flow Rate 2 08/16/24 00:11 08/16/24 00:27 08/16/24 02:00 Temperature 97.8 F Pulse Rate 128 H 105 H Respiratory Rate 20 Blood Pressure 161/72 H Pulse Oximetry 98 98 Oxygen Delivery Nasal Cannula Oxygen Flow Rate 2 08/16/24 02:33 08/16/24 04:00 08/16/24 04:00 Temperature Pulse Rate 95 105 H Respiratory Rate 20 Blood Pressure Pulse Oximetry 97 Oxygen Delivery Nasal Cannula Oxygen Flow Rate 2 08/16/24 04:59 08/16/24 06:00 08/16/24 08:00 Temperature 98.7 F Pulse Rate 110 H 100 Respiratory Rate 20 Blood Pressure 175/81 H Pulse Oximetry 97 98 Oxygen Delivery Nasal Cannula Oxygen Flow Rate 2 08/16/24 08:04 08/16/24 08:45 08/16/24 08:45 Temperature 98.7 F Pulse Rate 92 102 H Respiratory Rate 20 20 Blood Pressure 167/76 H Pulse Oximetry 98 95 Oxygen Delivery Nasal Cannula Oxygen Flow Rate 2 08/16/24 09:02 08/16/24 10:00 08/16/24 11:00 Temperature Pulse Rate 99 105 H Respiratory Rate 20 Blood Pressure Pulse Oximetry Oxygen Delivery Nasal Cannula Oxygen Flow Rate 2 08/16/24 11:58 08/16/24 12:00 08/16/24 12:10 Temperature 98.5 F Pulse Rate 97 125 H Respiratory Rate 20 Blood Pressure 166/100 H Pulse Oximetry 95 94 Oxygen Delivery Room Air Oxygen Flow Rate 08/16/24 13:40 08/16/24 14:00 08/16/24 14:26 Temperature Pulse Rate 104 H 92 Respiratory Rate 20 Blood Pressure Pulse Oximetry Oxygen Delivery Room Air Oxygen Flow Rate Intake/Output Intake/Output: Intake & Output 08/13/24 08/14/24 08/15/24 08/16/24 23:59 23:59 23:59 23:59 Intake Total 540 1470 790 Output Total 1800 2550 2150 Balance -8782 -1672 -6310 Meds/Results Medications: Active Medications Generic Name Dose Route Start Last Admin Trade Name Freq PRN Reason Stop Dose Admin Acetaminophen 650 mg 08/14/24 10:21 08/15/24 05:36 Acetaminophen 325 Mg Tablet PO 650 mg Q4H PRN Administration Mild Pain (1-3) or Fever Hydrocodone Bitart/Acetaminophen 1 tab 08/14/24 10:21 08/16/24 10:06 Hydrocodone/Acetaminophen (*Crx) 5-325 Mg Tablet PO 1 tab Q4H PRN Administration Pain Rated 4-6 Albuterol/Ipratropium 3 ml 08/14/24 14:00 08/16/24 14:22 Ipratropium 0.5 Mg/Albuterol Sulfate 2.5 Mg Ampul.Neb 3 Ml INHALATION 3 ml Q6HRT BRODIE Administration Albuterol/Ipratropium 3 ml 08/15/24 20:00 08/16/24 14:25 Ipratropium 0.5 Mg/Albuterol Sulfate 2.5 Mg Ampul.Neb 3 Ml INHALATION Not Given Q6HRT BRODIE Apixaban 5 mg 08/15/24 23:59 08/16/24 10:08 Apixaban 5 Mg Tablet PO 5 mg Q12HR BRODIE Administration Atorvastatin Calcium 80 mg 08/14/24 21:00 08/15/24 17:05 Atorvastatin 40 Mg Tablet PO 80 mg QPM BRODIE Administration Bupropion HCl 300 mg 08/15/24 09:00 08/16/24 10:06 Bupropion Hcl Xl (24 Hr) 150 Mg Tabcr PO 300 mg DAILY BRODIE Administration Clopidogrel Bisulfate 75 mg 08/15/24 09:00 08/16/24 10:07 Clopidogrel Bisulfate 75 Mg Tablet PO 75 mg DAILY BRODIE Administration Dextrose 12.5 gm 08/14/24 12:54 Dextrose 50% 25 Gm/50 Ml Syringe IV PUSH PRN PRN Hypoglycemia Protocol Empagliflozin 10 mg 08/16/24 11:45 08/16/24 12:10 Empagliflozin 10 Mg Tablet PO 10 mg DAILY BRODIE Administration Enalapril Maleate 20 mg 08/15/24 09:00 08/16/24 10:06 Enalapril Maleate 10 Mg Tablet PO 20 mg QAM BRODIE Administration Furosemide 40 mg 08/17/24 09:00 Furosemide 40 Mg Tablet PO DAILY BRODIE Glimepiride 2 mg 08/15/24 09:00 08/16/24 10:06 Glimepiride 2 Mg Tablet PO 2 mg DAILY BRODIE Administration Glucagon 1 mg 08/14/24 12:54 Glucagon For Inj 1 Mg Vial IM PRN PRN Hypoglycemia Protocol Glucose 15 gm 08/14/24 12:54 Glucose Oral Gel 15 Gm Of Glucse In 37.5 Gm Tube PO PRN PRN Hypoglycemia Protocol Hydroxyzine HCl 25 mg 08/15/24 09:00 08/16/24 10:07 Hydroxyzine Hcl 25 Mg Tablet PO 25 mg DAILY BRODIE Administration Dextrose 1,000 mls @ 100 mls/hr 08/14/24 12:54 Dextrose 5% 1,000 Ml IVPB PRN PRN Hypoglycemia Protocol Insulin Aspart 1 - 3 units 08/14/24 21:00 08/15/24 20:21 Insulin Aspart (*Bkc) 100 Units/Ml SUB-Q Not Given HS BRODIE Protocol Insulin Aspart 3 - 6 units 08/14/24 17:00 08/16/24 12:11 Insulin Aspart (*Bkc) 100 Units/Ml SUB-Q Not Given TIDWM [facility] Protocol Isosorbide Mononitrate 30 mg 08/15/24 09:00 08/16/24 10:07 Isosorbide Mononitrate 30 Mg Tab.Er.24h PO 30 mg DAILY BRODIE Administration Loperamide HCl 2 mg 08/16/24 00:03 Loperamide Hcl 2 Mg Capsule PO PRN PRN diarrhea Metoprolol Succinate 50 mg 08/16/24 11:45 08/16/24 12:10 Metoprolol Succinate Ext Rel 50 Mg Tabcr PO 50 mg QAM BRODIE Administration Ondansetron HCl 4 mg 08/14/24 10:21 Ondansetron Inj 4 Mg/2 Ml Vial IV PUSH Q4H PRN Nausea Pantoprazole Sodium 40 mg 08/15/24 09:00 08/16/24 10:06 Pantoprazole 40 Mg Tablet PO 40 mg DAILY BRODIE Administration Perflutren Lipid Microsphere 0 ml 08/14/24 12:54 Perflutren Lipid Microspheres 1.5 Ml Vial Diluted To 10 Ml Total Volume IV PUSH 08/17/24 12:54 ONCE PRN adequate visualization Protocol Prednisone 40 mg 08/15/24 08:00 08/16/24 10:07 Prednisone 20 Mg Tablet PO 08/19/24 08:01 40 mg DAILY@0800 BRODIE Administration Fluticasone/Salmeterol 2 puff 08/15/24 20:00 08/16/24 08:45 Fluticasone/Salmeterol 45-21 Mcg Inhaler 1 Puff INHALATION 2 puff Q12HRT BRODIE Administration Sertraline HCl 100 mg 08/14/24 21:00 08/15/24 20:21 Sertraline Hcl 50 Mg Tablet PO 100 mg Q24H BRODIE Administration Spironolactone 25 mg 08/17/24 09:00 Spironolactone 25 Mg Tablet PO QAM [facility] Radiology Results: ITS Impressions Chest X-Ray 08/14/24 08:05 Impression: 1: Cardiomegaly with pulmonary edema. Labs Labs: Laboratory Results - last 24 hr 08/15/24 08/16/24 08/16/24 20:04 00:57 04:58 WBC 10.1 H RBC 3.85 L Hgb 11.2 L Hct 35.9 L MCV 93.2 MCH 29.1 MCHC 31.2 L RDW 14.6 H Plt Count 231 MPV 10.1 Immature Gran % (Auto) 0.3 Neut % (Auto) 67.7 Lymph % (Auto) 23.6 Williamson % (Auto) 7.5 Eos % (Auto) 0.6 Baso % (Auto) 0.3 Lymph # (Auto) 2.39 Williamson # (Auto) 0.8 H Eos # (Auto) 0.1 Baso # (Auto) 0.0 Abs Immat Gran (auto) 0.03 Absolute Neuts (auto) 6.8 H Absolute Nucleated RBC 0.000 Nucleated RBC % 0.0 Sodium 140 141 Potassium 3.3 L 3.9 Chloride 101 101 Carbon Dioxide 26 29 Anion Gap 13 H 11 BUN 21 H 20 H Creatinine 1.19 H 1.13 H Estim Creat Clear Calc 39 41 Estimated GFR 44 L 47 L Glucose 181 H 162 H POC Capillary Glucose 195 H Lactic Acid 2.2 H Calcium 9.0 9.1 Phosphorus 2.5 Magnesium 1.4 L 2.4 H Total Bilirubin 0.6 AST 19 ALT 15 Alkaline Phosphatase 70 Total Protein 7.0 Albumin 3.8 4.1 08/16/24 08/16/24 08/16/24 07:33 08:25 11:21 WBC RBC Hgb Hct MCV MCH MCHC RDW Plt Count MPV Immature Gran % (Auto) Neut % (Auto) Lymph % (Auto) Williamson % (Auto) Eos % (Auto) Baso % (Auto) Lymph # (Auto) Williamson # (Auto) Eos # (Auto) Baso # (Auto) Abs Immat Gran (auto) Absolute Neuts (auto) Absolute Nucleated RBC Nucleated RBC % Sodium Potassium Chloride Carbon Dioxide Anion Gap BUN Creatinine Estim Creat Clear Calc Estimated GFR Glucose POC Capillary Glucose 128 H 192 H Lactic Acid 1.8 Calcium Phosphorus Magnesium Total Bilirubin AST ALT Alkaline Phosphatase Total Protein Albumin 08/16/24 15:34 WBC RBC Hgb Hct MCV MCH MCHC RDW Plt Count MPV Immature Gran % (Auto) Neut % (Auto) Lymph % (Auto) Williamson % (Auto) Eos % (Auto) Baso % (Auto) Lymph # (Auto) Williamson # (Auto) Eos # (Auto) Baso # (Auto) Abs Immat Gran (auto) Absolute Neuts (auto) Absolute Nucleated RBC Nucleated RBC % Sodium Potassium Chloride Carbon Dioxide Anion Gap BUN Creatinine Estim Creat Clear Calc Estimated GFR Glucose POC Capillary Glucose 311 H Lactic Acid Calcium Phosphorus Magnesium Total Bilirubin AST ALT Alkaline Phosphatase Total Protein Albumin Quality VTE Prophylaxis VTE prophylaxis: pharmacologic ordered (on apixaban)
[2024-08-16] MEDS: ATORVASTATIN 40 MG TABLET 80 MG PO (17:31)
[2024-08-16] MEDS: INSULIN ASPART (*BKC) 100 UNITS/ML SUB-Q (17:35)
[2024-08-16 20:03] LABS: Glucose Point of Care 174 mg/dl (65-105)
[2024-08-16] MEDS: SERTRALINE HCL 50 MG TABLET 100 MG PO (22:27)
[2024-08-17] VITALS (27 sets, daily range): BP systolic 121–140; BP diastolic 52–73; PULSE 76–97; RESP 18–20; TEMP 36.4–36.9; O2SAT 87–100
[2024-08-17] MEDS: IPRATROPIUM 0.5 MG/ALBUTEROL SULFATE 2.5 MG AMPUL.NEB 3 ML INHALATION ×4 (02:13→21:34)
[2024-08-17 05:39] LABS: Basophils Percent Auto 0.4 % (0.2-1.2); Eosinophils Absolute Auto 0.1 K/mm3 (0-0.3); Eosinophils Percent Auto 1.3 % (0-4.4); Hemoglobin 11.1 g/dL (12.0-15.0); Immature Granulocyte Absolute 0.04 K/mm3 (0.00-0.031); Immature Granulocyte Percent A 0.4 % (0-0.5); Lymphocytes Absolute Auto 2.59 K/mm3 (0.9-3.2); Lymphocytes Percent Auto 23.4 % (18.3-44.2); Mean Corpuscular HGB Conc 30.8 g/dl (32-36); Mean Corpuscular Hemoglobin 29.1 pg (26-34); Mean Corpuscular Volume 94.2 fl (80-100); Mean Platelet Volume 10.2 fl (7.4-10.4); Monocytes Absolute Auto 0.7 K/mm3 (0.1-0.6); Monocytes Percent Auto 6.6 % (2.6-8.5); Neutrophils Absolute Auto 7.5 K/mm3 (1.3-6.7); Neutrophils Percent Auto 67.9 % (45.5-73.1); Platelet Count Result 230 k/mm3 (150-375); Red Blood Count 3.82 M/mm3 (4.2-5.4); Red Cell Distribution Width 14.7 % (11.5-14.5); White Blood Count 11.1 K/mm3 (4.5-10.0)
[2024-08-17 05:47] LABS: Alanine Aminotransferase 15 U/L (6-35); Alkaline Phosphatase 66 U/L (38-126); Anion Gap 11 mmol/L (4-12); Aspartate Amino Transferase 21 U/L (14-36); Bilirubin,Total 0.8 mg/dL (0.2-1.3); Blood Urea Nitrogen 22 mg/dL (7-17); Calcium 9.2 mg/dL (8.4-10.2); Carbon Dioxide 30 mmol/L (22-30); Chloride 101 mmol/L (98-107); Estimated CRCL calculation 37 ml/min; Estimated Glomerular Filt Rate 42; Glucose 112 mg/dL (65-110); Magnesium 2.1 mg/dL (1.6-2.3); Potassium 3.9 mmol/L (3.4-5.0); Sodium 142 mmol/L (137-145)
[2024-08-17 08:01] LABS: Glucose Point of Care 113 mg/dl (65-105)
[2024-08-17] MEDS: FLUTICASONE/SALMETEROL 45-21 MCG INHALER 1 PUFF 2 PUFF INHALATION ×2 (08:39→21:34)
[2024-08-17] MEDS: HYDROcodone/acetaminophen (*CRX) 5-325 MG TABLET 1 TAB PO ×2 (09:30→21:15)
[2024-08-17] MEDS: buPROPion HCL XL (24 HR) 150 MG TABCR 300 MG PO (09:31)
[2024-08-17] MEDS: SPIRONOLACTONE 25 MG TABLET PO (09:32)
[2024-08-17] MEDS: ENALAPRIL MALEATE 10 MG TABLET 20 MG PO (09:32)
[2024-08-17] MEDS: hydrOXYzine HCL 25 MG TABLET PO (09:32)
[2024-08-17] MEDS: EMPAGLIFLOZIN 10 MG TABLET PO (09:32)
[2024-08-17] MEDS: PANTOPRAZOLE 40 MG TABLET PO (09:32)
[2024-08-17] MEDS: FUROSEMIDE 40 MG TABLET PO (09:32)
[2024-08-17] MEDS: GLIMEPIRIDE 2 MG TABLET PO (09:33)
[2024-08-17] MEDS: predniSONE 20 MG TABLET 40 MG PO (09:33)
[2024-08-17] MEDS: CLOPIDOGREL BISULFATE 75 MG TABLET PO (09:33)
[2024-08-17] MEDS: METOPROLOL SUCCINATE EXT REL 50 MG TABCR PO (09:33)
[2024-08-17] MEDS: APIXABAN 5 MG TABLET PO ×2 (09:33→21:16)
[2024-08-17] MEDS: ISOSORBIDE MONONITRATE 30 MG TAB.ER.24H PO (09:33)
--- NOTE | 2024-08-17 10:24 | P.PNCA_ITS ---
Progress Note: A&P Assessment and Plan (1) CHF exacerbation: Code(s): I50.9 - Heart failure, unspecified Status: Acute (2) Chronic obstructive pulmonary disease: Code(s): J44.9 - Chronic obstructive pulmonary disease, unspecified Status: Acute Plan 1. Complex coronary artery disease * 02/13/2018 NSTEMI. LHC at [facility] showed high grade triple vessel CAD. Transferred to [facility] for evaluation of CABG but patient opted for complex PCI * 02/20/2018 Complex PCI to the LAD with 2.75mm x 38mm Promus Synergy and 3.0mm x 20mm Promus Synergy in mid and proximal portion of LAD. Planned for staged PCI of OM and RCA afterwards. * 03/29/2018 Underwent staged PCI of heavily calcified proximal and mid RCA with a 2.5mm x 38mm Promus Synergy SASHA stent in the proximal and mid RCA and an overlapping 3.0mm x 24mm Promus Synergy SASHA in the proximal RCA. Residual CAD of the RPDA and OM2 that was medically managed. * 01/13/2022: Successful laser atherectomy and Shockwave lithotripsy with subsequent Orsiro 3.0mm x 12mm SASHA in the ostial LCX. 2. Paroxysmal atrial fibrillation. First diagnosed in January 2018 at time of her NSTEMI. Amiodarone was stopped due to lack of necessity and prolongation of QTc. 3. Acute on chronic heart failure with mildly reduced LVEF. Echocardiograms in 2018 showed LVEF 40-46% with multiple wall motion abnormalities. Echocardiogram since then with LVEF 50%. Echocardiogram this admission shows LVEF 40-45% with hypokinesis of the mid-distal anterior wall and apex. 4. Severe bilateral peripheral arterial disease s/p multiple interventions 5. Hypertension 6. Hyperlipidemia 7. Type 2 diabetes mellitus 8. COPD, acute exacerbation PLAN: -Management of COPD exacerbation by primary team. -no significant volume overload at present. Maintenance diuresis with low-dose furosemide. -relatively stable CAD and PAD at present-on antiplatelet treatment with clopidogrel. Continue statin. -GDMT for CHF- continue Enalapril (may switch to ARNI as an outpatient), metoprolol succinate, SGLT 2 inhibitor, spironolactone. Uptitrate meds as tolerated as an outpatient. -Follow-up with primary legal consultant after hospital discharge. Cardiology will sign off. Subjective Date/time seen: 08/17/24 10:24 Interval history: 08/17/2024-patient reports improvement in shortness of breath. No chest pain. Exam Narrative: PHYSICAL EXAMINATION: GENERAL: Alert, oriented, no acute distress MENTAL STATUS: affect appropriate to mood EYES: Extraocular movements intact, no pallor EARS: External ears appear normal, hearing grossly normal NOSE: Normal and patent, no discharge MOUTH: Mucous membranes moist, poor dentition NECK: Supple, no JVD CHEST: Decreased breath sounds HEART: Normal rate, regular rhythm, normal S1 and S2 ABDOMEN: Soft, nontender NEUROLOGICAL: Alert, oriented, normal speech, no gross motor deficits MUSCULOSKELETAL: No major deformity, no amputation EXTREMITIES: No pedal edema, no clubbing, no cyanosis SKIN: no rash on the exposed area, no cyanosis PSYCHIATRIC: Normal mood, appropriate affect Objective Data Vital Signs Vital Signs: Vital Signs - 24 hr 08/16/24 11:00 08/16/24 11:58 08/16/24 12:00 Temperature 36.9 C Pulse Rate 97 Respiratory Rate 20 Blood Pressure 166/100 H Pulse Oximetry 95 94 Oxygen Delivery Nasal Cannula Room Air Oxygen Flow Rate 2 08/16/24 12:00 08/16/24 12:10 08/16/24 13:40 Temperature Pulse Rate 139 H 125 H Respiratory Rate Blood Pressure Pulse Oximetry Oxygen Delivery Room Air Oxygen Flow Rate 08/16/24 14:00 08/16/24 14:26 08/16/24 16:00 Temperature Pulse Rate 104 H 92 Respiratory Rate 20 Blood Pressure Pulse Oximetry 96 Oxygen Delivery Nasal Cannula Oxygen Flow Rate 2 08/16/24 16:00 08/16/24 16:14 08/16/24 18:00 Temperature 37.1 C Pulse Rate 89 87 92 Respiratory Rate 20 Blood Pressure 150/65 H Pulse Oximetry 94 Oxygen Delivery Oxygen Flow Rate 08/16/24 20:00 08/16/24 20:53 08/16/24 21:35 Temperature 37.0 C Pulse Rate 90 85 93 Respiratory Rate 20 20 Blood Pressure 137/84 Pulse Oximetry 94 Oxygen Delivery Oxygen Flow Rate 08/16/24 21:36 08/16/24 21:45 08/16/24 21:50 Temperature Pulse Rate 97 85 Respiratory Rate 20 20 Blood Pressure Pulse Oximetry 94 94 Oxygen Delivery Room Air Room Air Oxygen Flow Rate 08/16/24 22:00 08/16/24 23:28 08/17/24 00:00 Temperature 37.0 C Pulse Rate 86 86 87 Respiratory Rate 20 Blood Pressure 130/83 Pulse Oximetry 95 Oxygen Delivery Oxygen Flow Rate 08/17/24 00:30 08/17/24 01:34 08/17/24 02:00 Temperature Pulse Rate 86 89 Respiratory Rate 20 Blood Pressure Pulse Oximetry 95 88 L Oxygen Delivery Room Air Room Air Oxygen Flow Rate 08/17/24 02:14 08/17/24 04:00 08/17/24 04:00 Temperature Pulse Rate 88 85 82 Respiratory Rate 20 20 Blood Pressure Pulse Oximetry 95 Oxygen Delivery Nasal Cannula Oxygen Flow Rate 2 08/17/24 04:24 08/17/24 05:41 08/17/24 08:15 Temperature 36.9 C 36.4 C Pulse Rate 85 83 90 Respiratory Rate 20 20 Blood Pressure 128/62 140/65 Pulse Oximetry 95 100 Oxygen Delivery Oxygen Flow Rate 08/17/24 08:40 08/17/24 08:42 08/17/24 09:33 Temperature Pulse Rate 97 93 Respiratory Rate 20 Blood Pressure Pulse Oximetry 98 Oxygen Delivery Nasal Cannula Oxygen Flow Rate 1.5 Intake/Output Intake/Output: Intake & Output 08/14/24 08/15/24 08/16/24 08/17/24 23:59 23:59 23:59 23:59 Intake Total 540 1470 2900 480 Output Total 1800 2550 3450 300 Balance -1260 -1080 -550 180 Meds/Results Medications: Active Medications Generic Name Dose Route Start Last Admin Trade Name Freq PRN Reason Stop Dose Admin Acetaminophen 650 mg 08/14/24 10:21 08/15/24 05:36 Acetaminophen 325 Mg Tablet PO 650 mg Q4H PRN Administration Mild Pain (1-3) or Fever Hydrocodone Bitart/Acetaminophen 1 tab 08/14/24 10:21 08/17/24 09:30 Hydrocodone/Acetaminophen (*Crx) 5-325 Mg Tablet PO 1 tab Q4H PRN Administration Pain Rated 4-6 Albuterol/Ipratropium 3 ml 08/15/24 20:00 08/17/24 08:39 Ipratropium 0.5 Mg/Albuterol Sulfate 2.5 Mg Ampul.Neb 3 Ml INHALATION 3 ml Q6HRT BRODIE Administration Apixaban 5 mg 08/15/24 23:59 08/17/24 09:33 Apixaban 5 Mg Tablet PO 5 mg Q12HR BRODIE Administration Atorvastatin Calcium 80 mg 08/14/24 21:00 08/16/24 17:31 Atorvastatin 40 Mg Tablet PO 80 mg QPM BRODIE Administration Bupropion HCl 300 mg 08/15/24 09:00 08/17/24 09:31 Bupropion Hcl Xl (24 Hr) 150 Mg Tabcr PO 300 mg DAILY BRODIE Administration Clopidogrel Bisulfate 75 mg 08/15/24 09:00 08/17/24 09:33 Clopidogrel Bisulfate 75 Mg Tablet PO 75 mg DAILY BRODIE Administration Dextrose 12.5 gm 08/14/24 12:54 Dextrose 50% 25 Gm/50 Ml Syringe IV PUSH PRN PRN Hypoglycemia Protocol Empagliflozin 10 mg 08/16/24 11:45 08/17/24 09:32 Empagliflozin 10 Mg Tablet PO 10 mg DAILY BRODIE Administration Enalapril Maleate 20 mg 08/15/24 09:00 08/17/24 09:32 Enalapril Maleate 10 Mg Tablet PO 20 mg QAM BRODIE Administration Furosemide 40 mg 08/17/24 09:00 08/17/24 09:32 Furosemide 40 Mg Tablet PO 40 mg DAILY BRODIE Administration Glimepiride 2 mg 08/15/24 09:00 08/17/24 09:33 Glimepiride 2 Mg Tablet PO 2 mg DAILY BRODIE Administration Glucagon 1 mg 08/14/24 12:54 Glucagon For Inj 1 Mg Vial IM PRN PRN Hypoglycemia Protocol Glucose 15 gm 08/14/24 12:54 Glucose Oral Gel 15 Gm Of Glucse In 37.5 Gm Tube PO PRN PRN Hypoglycemia Protocol Hydroxyzine HCl 25 mg 08/15/24 09:00 08/17/24 09:32 Hydroxyzine Hcl 25 Mg Tablet PO 25 mg DAILY BRODIE Administration Dextrose 1,000 mls @ 100 mls/hr 08/14/24 12:54 Dextrose 5% 1,000 Ml IVPB PRN PRN Hypoglycemia Protocol Insulin Aspart 1 - 3 units 08/14/24 21:00 08/16/24 22:26 Insulin Aspart (*Bkc) 100 Units/Ml SUB-Q Not Given HS BRODIE Protocol Insulin Aspart 3 - 6 units 08/14/24 17:00 08/17/24 09:31 Insulin Aspart (*Bkc) 100 Units/Ml SUB-Q Not Given TIDWM BRODIE Protocol Isosorbide Mononitrate 30 mg 08/15/24 09:00 08/17/24 09:33 Isosorbide Mononitrate 30 Mg Tab.Er.24h PO 30 mg DAILY BRODIE Administration Loperamide HCl 2 mg 08/16/24 00:03 Loperamide Hcl 2 Mg Capsule PO PRN PRN diarrhea Metoprolol Succinate 50 mg 08/16/24 11:45 08/17/24 09:33 Metoprolol Succinate Ext Rel 50 Mg Tabcr PO 50 mg QAM BRODIE Administration Ondansetron HCl 4 mg 08/14/24 10:21 Ondansetron Inj 4 Mg/2 Ml Vial IV PUSH Q4H PRN Nausea Pantoprazole Sodium 40 mg 08/15/24 09:00 08/17/24 09:32 Pantoprazole 40 Mg Tablet PO 40 mg DAILY BRODIE Administration Perflutren Lipid Microsphere 0 ml 08/14/24 12:54 Perflutren Lipid Microspheres 1.5 Ml Vial Diluted To 10 Ml Total Volume IV PUSH 08/17/24 12:54 ONCE PRN adequate visualization Protocol Prednisone 40 mg 08/15/24 08:00 08/17/24 09:33 Prednisone 20 Mg Tablet PO 08/19/24 08:01 40 mg DAILY@0800 BRODIE Administration Fluticasone/Salmeterol 2 puff 08/15/24 20:00 08/17/24 08:39 Fluticasone/Salmeterol 45-21 Mcg Inhaler 1 Puff INHALATION 2 puff Q12HRT BRODIE Administration Sertraline HCl 100 mg 08/14/24 21:00 08/16/24 22:27 Sertraline Hcl 50 Mg Tablet PO 100 mg Q24H BRODIE Administration Spironolactone 25 mg 08/17/24 09:00 08/17/24 09:32 Spironolactone 25 Mg Tablet PO 25 mg QAM BRODIE Administration Radiology Results: ITS Impressions Chest X-Ray 08/14/24 08:05 Impression: 1: Cardiomegaly with pulmonary edema. Labs Labs: Laboratory Results - last 24 hr 08/16/24 08/16/24 08/16/24 11:21 15:34 19:56 WBC RBC Hgb Hct MCV MCH MCHC RDW Plt Count MPV Immature Gran % (Auto) Neut % (Auto) Lymph % (Auto) [place] % (Auto) Eos % (Auto) Baso % (Auto) Lymph # (Auto) [place] # (Auto) Eos # (Auto) Baso # (Auto) Abs Immat Gran (auto) Absolute Neuts (auto) Absolute Nucleated RBC Nucleated RBC % Sodium Potassium Chloride Carbon Dioxide Anion Gap BUN Creatinine Estim Creat Clear Calc Estimated GFR Glucose POC Capillary Glucose 192 H 311 H 174 H Calcium Magnesium Total Bilirubin AST ALT Alkaline Phosphatase Total Protein Albumin 08/17/24 08/17/24 05:15 07:34 WBC 11.1 H RBC 3.82 L Hgb 11.1 L Hct 36.0 L MCV 94.2 MCH 29.1 MCHC 30.8 L RDW 14.7 H Plt Count 230 MPV 10.2 Immature Gran % (Auto) 0.4 Neut % (Auto) 67.9 Lymph % (Auto) 23.4 [place] % (Auto) 6.6 Eos % (Auto) 1.3 Baso % (Auto) 0.4 Lymph # (Auto) 2.59 [place] # (Auto) 0.7 H Eos # (Auto) 0.1 Baso # (Auto) 0.0 Abs Immat Gran (auto) 0.04 H Absolute Neuts (auto) 7.5 H Absolute Nucleated RBC 0.000 Nucleated RBC % 0.0 Sodium 142 Potassium 3.9 Chloride 101 Carbon Dioxide 30 Anion Gap 11 BUN 22 H Creatinine 1.25 H Estim Creat Clear Calc 37 Estimated GFR 42 L Glucose 112 H POC Capillary Glucose 113 H Calcium 9.2 Magnesium 2.1 Total Bilirubin 0.8 AST 21 ALT 15 Alkaline Phosphatase 66 Total Protein 7.0 Albumin 4.0
--- NOTE | 2024-08-17 10:27 | P.PNIM_ITS ---
Progress Note: A&P Assessment and Plan (1) Acute respiratory failure with hypoxia and hypercapnia: Code(s): J96.01 - Acute respiratory failure with hypoxia; J96.02 - Acute respiratory failure with hypercapnia Status: Acute (2) CHF exacerbation: Code(s): I50.9 - Heart failure, unspecified Status: Acute (3) Chronic obstructive pulmonary disease: Code(s): J44.9 - Chronic obstructive pulmonary disease, unspecified Status: Acute (4) Type 2 diabetes mellitus: Code(s): E11.9 - Type 2 diabetes mellitus without complications Status: Acute (5) Hypertension: Code(s): I10 - Essential (primary) hypertension Status: Acute Plan CHF exacerbation Systolic EF 40-45% Continue Lasix, Continue Enalpril and stop Nifedipine per cardiology to allow for titration of other guideline therapy cardiology following COPD exacerbation on baseline oxygen requirement Diffuse wheezing Continue Duoneb treatment and steroid monitor Dm2 SSI with accucheks adjust with clinical course CORTES continue CPAP CAD continue antiplatelets and statin DVT prophylaxis on Eliquis Awaiting SNF placement per PT/OT Subjective Date/time seen: 08/17/24 10:27 Interval history: Patient comfortable at bedside and on baseline oxygen wheezing at bedside Awaiting PT/OT recs SNF Review of Systems Review of Systems: 12 systems were reviewed and are negativ e except for as per HPI. Exam Narrative: General: Nontoxic-appearing female in the semi-Giordano position in bed in no acute distress. Weight: 84.8 kg. BMI: 29.3. HEENT: PERRL, EOMI. Sclera anicteric. Oral mucosa moist. Oropharynx clear. Neck: Supple. No JVD. Respiratory: Mild conversational dyspnea though she appears in no acute respir atory distress and she is speaking freely without problems. Lung sounds are diminished throughout with fine crackles and expiratory wheezing. Cardiovascular: Regular rate and rhythm with S1-S2. Gastrointestinal: Abdomen is soft, nontender, and nondistended with positive bowel sounds. Skin: Warm and dry. No rash or lesions on limited exam. Extremities: No cyanosis, clubbing, or significant edema. Radial and pedal pulses intact. No palpable knots or cords. Negative Goyo sign bilaterally. Neurological: Alert. Cranial nerves 2-12 are grossly intact. No gross focal deficits to casual conversation. Psychiatric: Pleasant and cooperative with normal mood and affect. Judgment and insight intact. She is in good spirits. Objective Data Vital Signs Vital Signs: Vital Signs - 24 hr 08/16/24 11:00 08/16/24 11:58 08/16/24 12:00 Temperature 98.5 F Pulse Rate 97 Respiratory Rate 20 Blood Pressure 166/100 H Pulse Oximetry 95 94 Oxygen Delivery Nasal Cannula Room Air Oxygen Flow Rate 2 08/16/24 12:00 08/16/24 12:10 08/16/24 13:40 Temperature Pulse Rate 139 H 125 H Respiratory Rate Blood Pressure Pulse Oximetry Oxygen Delivery Room Air Oxygen Flow Rate 08/16/24 14:00 08/16/24 14:26 08/16/24 16:00 Temperature Pulse Rate 104 H 92 Respiratory Rate 20 Blood Pressure Pulse Oximetry 96 Oxygen Delivery Nasal Cannula Oxygen Flow Rate 2 08/16/24 16:00 08/16/24 16:14 08/16/24 18:00 Temperature 98.7 F Pulse Rate 89 87 92 Respiratory Rate 20 Blood Pressure 150/65 H Pulse Oximetry 94 Oxygen Delivery Oxygen Flow Rate 08/16/24 20:00 08/16/24 20:53 08/16/24 21:35 Temperature 98.6 F Pulse Rate 90 85 93 Respiratory Rate 20 20 Blood Pressure 137/84 Pulse Oximetry 94 Oxygen Delivery Oxygen Flow Rate 08/16/24 21:36 08/16/24 21:45 08/16/24 21:50 Temperature Pulse Rate 97 85 Respiratory Rate 20 20 Blood Pressure Pulse Oximetry 94 94 Oxygen Delivery Room Air Room Air Oxygen Flow Rate 08/16/24 22:00 08/16/24 23:28 08/17/24 00:00 Temperature 98.6 F Pulse Rate 86 86 87 Respiratory Rate 20 Blood Pressure 130/83 Pulse Oximetry 95 Oxygen Delivery Oxygen Flow Rate 08/17/24 00:30 08/17/24 01:34 08/17/24 02:00 Temperature Pulse Rate 86 89 Respiratory Rate 20 Blood Pressure Pulse Oximetry 95 88 L Oxygen Delivery Room Air Room Air Oxygen Flow Rate 08/17/24 02:14 08/17/24 04:00 08/17/24 04:00 Temperature Pulse Rate 88 85 82 Respiratory Rate 20 20 Blood Pressure Pulse Oximetry 95 Oxygen Delivery Nasal Cannula Oxygen Flow Rate 2 08/17/24 04:24 08/17/24 05:41 08/17/24 08:15 Temperature 98.5 F 97.6 F Pulse Rate 85 83 90 Respiratory Rate 20 20 Blood Pressure 128/62 140/65 Pulse Oximetry 95 100 Oxygen Delivery Oxygen Flow Rate 08/17/24 08:40 08/17/24 08:42 08/17/24 09:33 Temperature Pulse Rate 97 93 Respiratory Rate 20 Blood Pressure Pulse Oximetry 98 Oxygen Delivery Nasal Cannula Oxygen Flow Rate 1.5 Intake/Output Intake/Output: Intake & Output 08/14/24 08/15/24 08/16/24 08/17/24 23:59 23:59 23:59 23:59 Intake Total 540 1470 2900 480 Output Total 1800 2550 3450 300 [facility] -1260 -1080 -550 180 Meds/Results Medications: Active Medications Generic Name Dose Route Start Last Admin Trade Name Freq PRN Reason Stop Dose Admin Acetaminophen 650 mg 08/14/24 10:21 08/15/24 05:36 Acetaminophen 325 Mg Tablet PO 650 mg Q4H PRN Administration Mild Pain (1-3) or Fever Hydrocodone Bitart/Acetaminophen 1 tab 08/14/24 10:21 08/17/24 09:30 Hydrocodone/Acetaminophen (*Crx) 5-325 Mg Tablet PO 1 tab Q4H PRN Administration Pain Rated 4-6 Albuterol/Ipratropium 3 ml 08/15/24 20:00 08/17/24 08:39 Ipratropium 0.5 Mg/Albuterol Sulfate 2.5 Mg Ampul.Neb 3 Ml INHALATION 3 ml Q6HRT BRODIE Administration Apixaban 5 mg 08/15/24 23:59 08/17/24 09:33 Apixaban 5 Mg Tablet PO 5 mg Q12HR BRODIE Administration Atorvastatin Calcium 80 mg 08/14/24 21:00 08/16/24 17:31 Atorvastatin 40 Mg Tablet PO 80 mg QPM BRODIE Administration Bupropion HCl 300 mg 08/15/24 09:00 08/17/24 09:31 Bupropion Hcl Xl (24 Hr) 150 Mg Tabcr PO 300 mg DAILY BRODIE Administration Clopidogrel Bisulfate 75 mg 08/15/24 09:00 08/17/24 09:33 Clopidogrel Bisulfate 75 Mg Tablet PO 75 mg DAILY BRODIE Administration Dextrose 12.5 gm 08/14/24 12:54 Dextrose 50% 25 Gm/50 Ml Syringe IV PUSH PRN PRN Hypoglycemia Protocol Empagliflozin 10 mg 08/16/24 11:45 08/17/24 09:32 Empagliflozin 10 Mg Tablet PO 10 mg DAILY BRODIE Administration Enalapril Maleate 20 mg 08/15/24 09:00 08/17/24 09:32 Enalapril Maleate 10 Mg Tablet PO 20 mg QAM BRODIE Administration Furosemide 40 mg 08/17/24 09:00 08/17/24 09:32 Furosemide 40 Mg Tablet PO 40 mg DAILY BRODIE Administration Glimepiride 2 mg 08/15/24 09:00 08/17/24 09:33 Glimepiride 2 Mg Tablet PO 2 mg DAILY BRODIE Administration Glucagon 1 mg 08/14/24 12:54 Glucagon For Inj 1 Mg Vial IM PRN PRN Hypoglycemia Protocol Glucose 15 gm 08/14/24 12:54 Glucose Oral Gel 15 Gm Of Glucse In 37.5 Gm Tube PO PRN PRN Hypoglycemia Protocol Hydroxyzine HCl 25 mg 08/15/24 09:00 08/17/24 09:32 Hydroxyzine Hcl 25 Mg Tablet PO 25 mg DAILY BRODIE Administration Dextrose 1,000 mls @ 100 mls/hr 08/14/24 12:54 Dextrose 5% 1,000 Ml IVPB PRN PRN Hypoglycemia Protocol Insulin Aspart 1 - 3 units 08/14/24 21:00 08/16/24 22:26 Insulin Aspart (*Bkc) 100 Units/Ml SUB-Q Not Given HS BRODIE Protocol Insulin Aspart 3 - 6 units 08/14/24 17:00 08/17/24 09:31 Insulin Aspart (*Bkc) 100 Units/Ml SUB-Q Not Given TIDWM [facility] Protocol Isosorbide Mononitrate 30 mg 08/15/24 09:00 08/17/24 09:33 Isosorbide Mononitrate 30 Mg Tab.Er.24h PO 30 mg DAILY BRODIE Administration Loperamide HCl 2 mg 08/16/24 00:03 Loperamide Hcl 2 Mg Capsule PO PRN PRN diarrhea Metoprolol Succinate 50 mg 08/16/24 11:45 08/17/24 09:33 Metoprolol Succinate Ext Rel 50 Mg Tabcr PO 50 mg QAM BRODIE Administration Ondansetron HCl 4 mg 08/14/24 10:21 Ondansetron Inj 4 Mg/2 Ml Vial IV PUSH Q4H PRN Nausea Pantoprazole Sodium 40 mg 08/15/24 09:00 08/17/24 09:32 Pantoprazole 40 Mg Tablet PO 40 mg DAILY BRODIE Administration Perflutren Lipid Microsphere 0 ml 08/14/24 12:54 Perflutren Lipid Microspheres 1.5 Ml Vial Diluted To 10 Ml Total Volume IV PUSH 08/17/24 12:54 ONCE PRN adequate visualization Protocol Prednisone 40 mg 08/15/24 08:00 08/17/24 09:33 Prednisone 20 Mg Tablet PO 08/19/24 08:01 40 mg DAILY@0800 BRODIE Administration Fluticasone/Salmeterol 2 puff 08/15/24 20:00 08/17/24 08:39 Fluticasone/Salmeterol 45-21 Mcg Inhaler 1 Puff INHALATION 2 puff Q12HRT BRODIE Administration Sertraline HCl 100 mg 08/14/24 21:00 08/16/24 22:27 Sertraline Hcl 50 Mg Tablet PO 100 mg Q24H BRODIE Administration Spironolactone 25 mg 08/17/24 09:00 08/17/24 09:32 Spironolactone 25 Mg Tablet PO 25 mg QAM BRODIE Administration Radiology Results: ITS Impressions Chest X-Ray 08/14/24 08:05 Impression: 1: Cardiomegaly with pulmonary edema. Labs Labs: Laboratory Results - last 24 hr 08/16/24 08/16/24 08/16/24 11:21 15:34 19:56 WBC RBC Hgb Hct MCV MCH MCHC RDW Plt Count MPV Immature Gran % (Auto) Neut % (Auto) Lymph % (Auto) [place] % (Auto) Eos % (Auto) Baso % (Auto) Lymph # (Auto) [place] # (Auto) Eos # (Auto) Baso # (Auto) Abs Immat Gran (auto) Absolute Neuts (auto) Absolute Nucleated RBC Nucleated RBC % Sodium Potassium Chloride Carbon Dioxide Anion Gap BUN Creatinine Estim Creat Clear Calc Estimated GFR Glucose POC Capillary Glucose 192 H 311 H 174 H Calcium Magnesium Total Bilirubin AST ALT Alkaline Phosphatase Total Protein Albumin 08/17/24 08/17/24 05:15 07:34 WBC 11.1 H RBC 3.82 L Hgb 11.1 L Hct 36.0 L MCV 94.2 MCH 29.1 MCHC 30.8 L RDW 14.7 H Plt Count 230 MPV 10.2 Immature Gran % (Auto) 0.4 Neut % (Auto) 67.9 Lymph % (Auto) 23.4 [place] % (Auto) 6.6 Eos % (Auto) 1.3 Baso % (Auto) 0.4 Lymph # (Auto) 2.59 [place] # (Auto) 0.7 H Eos # (Auto) 0.1 Baso # (Auto) 0.0 Abs Immat Gran (auto) 0.04 H Absolute Neuts (auto) 7.5 H Absolute Nucleated RBC 0.000 Nucleated RBC % 0.0 Sodium 142 Potassium 3.9 Chloride 101 Carbon Dioxide 30 Anion Gap 11 BUN 22 H Creatinine 1.25 H Estim Creat Clear Calc 37 Estimated GFR 42 L Glucose 112 H POC Capillary Glucose 113 H Calcium 9.2 Magnesium 2.1 Total Bilirubin 0.8 AST 21 ALT 15 Alkaline Phosphatase 66 Total Protein 7.0 Albumin 4.0 Quality VTE Prophylaxis VTE prophylaxis: pharmacologic ordered (on apixaban)
[2024-08-17 11:39] LABS: Glucose Point of Care 208 mg/dl (65-105)
[2024-08-17] MEDS: INSULIN ASPART (*BKC) 100 UNITS/ML SUB-Q ×2 (11:55→17:35)
[2024-08-17] MEDS: ATORVASTATIN 40 MG TABLET 80 MG PO (17:35)
[2024-08-17 19:35] LABS: Glucose Point of Care 290 mg/dl (65-105)
[2024-08-17 20:15] LABS: Glucose Point of Care 136 mg/dl (65-105)
[2024-08-17] MEDS: SERTRALINE HCL 50 MG TABLET 100 MG PO (21:16)
[2024-08-18] VITALS (16 sets, daily range): BP systolic 147–152; BP diastolic 67–68; PULSE 82–109; RESP 18–22; TEMP 36.7–36.8; O2SAT 91–98
[2024-08-18] MEDS: IPRATROPIUM 0.5 MG/ALBUTEROL SULFATE 2.5 MG AMPUL.NEB 3 ML INHALATION ×3 (02:46→13:05)
[2024-08-18] MEDS: FLUTICASONE/SALMETEROL 45-21 MCG INHALER 1 PUFF 2 PUFF INHALATION (07:04)
[2024-08-18 07:22] LABS: Glucose Point of Care 135 mg/dl (65-105)
[2024-08-18] MEDS: buPROPion HCL XL (24 HR) 150 MG TABCR 300 MG PO (09:10)
[2024-08-18] MEDS: APIXABAN 5 MG TABLET PO (09:10)
[2024-08-18] MEDS: EMPAGLIFLOZIN 10 MG TABLET PO (09:10)
[2024-08-18] MEDS: CLOPIDOGREL BISULFATE 75 MG TABLET PO (09:11)
[2024-08-18] MEDS: HYDROcodone/acetaminophen (*CRX) 5-325 MG TABLET 1 TAB PO (09:11)
[2024-08-18] MEDS: METOPROLOL SUCCINATE EXT REL 50 MG TABCR PO (09:11)
[2024-08-18] MEDS: SPIRONOLACTONE 25 MG TABLET PO (09:11)
[2024-08-18] MEDS: hydrOXYzine HCL 25 MG TABLET PO (09:11)
[2024-08-18] MEDS: ISOSORBIDE MONONITRATE 30 MG TAB.ER.24H PO (09:11)
[2024-08-18] MEDS: ENALAPRIL MALEATE 10 MG TABLET 20 MG PO (09:11)
[2024-08-18] MEDS: predniSONE 20 MG TABLET 40 MG PO (09:11)
[2024-08-18] MEDS: PANTOPRAZOLE 40 MG TABLET PO (09:11)
[2024-08-18] MEDS: FUROSEMIDE 40 MG TABLET PO (09:11)
[2024-08-18] MEDS: GLIMEPIRIDE 2 MG TABLET PO (09:11)
--- NOTE | 2024-08-18 10:38 | P.DS_ITS ---
DS: Admitting Diagnosis Discharge Date 08/18/24 Admitting Diagnosis Shortness of breath. DS: Discharge Diagnosis Discharge Diagnosis (1) CHF exacerbation: Code(s): I50.9 - Heart failure, unspecified Status: Acute (2) Chronic obstructive pulmonary disease: Code(s): J44.9 - Chronic obstructive pulmonary disease, unspecified Status: Acute (3) Acute respiratory failure with hypoxia and hypercapnia: Code(s): J96.01 - Acute respiratory failure with hypoxia; J96.02 - Acute respiratory failure with hypercapnia Status: Acute DS: Summary Hospital Course Hospital Course: This is a 79-year-old female with chronic obstructive pulmonary disease, chronic respiratory failure with hypoxia on 2.5 L nasal cannula home oxygen, congestive heart failure, coronary artery disease, peripheral arterial disease,, hypertension, obstructive sleep apnea, and type 2 diabetes mellitus who presented to the emergency department via EMS from home for evaluation of shortness of breath. She gives a 3 day history of nonproductive cough, shortness of breath on lesser and lesser exertion, and poor appetite. Her symptoms were much worse this morning and she could hardly catch her breath and she called 911. She does not have nebulizers at home and only had a rescue inhaler which has not helped. She denies fever, sinus congestion, chest pain, pleuritic pain, nausea, vomiting, calf pain, and edema. On EMS arrival her SpO2 was 88% on room air. She was administered albuterol nebulizer treatment EN route to the hospital and was placed on CPAP. In the ED: The patient arrived to triage on CPAP with labored breathing and respiratory rate of 30. She was transition to BiPAP and is more comfortable. She has been afebrile since arrival. ABG showed a pH of 7.287, pCO2 50.8, PO2 70, HC03 23.7. Labs were significant for WBC count is 16.6, glucose 271, proBNP 3560. Respiratory panel was negative. Chest x-ray showed cardiomegaly with pulmonary edema. She was given a DuoNeb and furosemide 40 mg IV and she is being admitted in this setting for further treatment. Patient was started lasix IV, ECHO showed EF 40-45% and cardiology was consulted. Nifedipine was discontinued and started on Jardiance, Metoprolol, Spironolactone, and continue Enalapril and Lasix. Patient tolerated regimen well and will continue with cardiology for further titration. Also managed for COPD exacerbation with steroid and bronchodilators. Discharged on Symbicort, and continue home albuterol. patient at home oxygen baseline. Patient will continue f/u PCP in 3-5 days, and cardiology as instructed Time Spent with Patient Time attestation: Total time spent providing and/or coordinating discharge services: DS: Data Data Completed and Pending Labs on day of discharge: Labs from last 24 hours 08/18/24 08/17/24 08/17/24 07:14 20:09 15:52 POC Capillary Glucose 135 H 136 H 290 H 08/17/24 11:14 POC Capillary Glucose 208 H Discharge Plan Discharge Attending physician on discharge: Paula Dolan Consulting providers: Tequila Weeks Discharging Clinician: Paula Dolan Anticipated Discharge Date/Time: 08/18/24 10:28 Patient Disposition: Home, Self-Care Activity: as tolerated Diet: heart healthy Patient Instructions: Antibiotic Form, Apixaban (By mouth) Patient Language: Tamazight Stand Alone Forms: General Discharge Information Follow-up/Referrals: Tequila Weeks APN-[facility] [Advanced Practice Nurse] - (F/u with cardiology as instructed ) Ron Booth MD [Primary Care Provider] - (F/u with PCP in 3-5 days ) Discharge Medications: New metoprolol succinate 50 mg Tablet Extended Release 24 Hr 50 mg PO QAM 30 Days Qty: 30 1RF spironolactone 25 mg Tablet 25 mg PO QAM 30 Days Qty: 30 1RF enalapril maleate 10 mg Tablet 20 mg PO QAM 30 Days Qty: 60 0RF Jardiance 10 mg Tablet 10 mg PO DAILY 30 Days Qty: 30 1RF budesonide-formoterol [Symbicort] 80-4.5 mcg/actuation HFA aerosol inhaler 2 puff inhalation Q12H Qty: 10.2 1RF Continued enalapril maleate 20 mg tablet 20 mg PO DAILY pantoprazole 40 mg tablet,delayed release (DR/EC) 40 mg PO DAILY sertraline 100 mg tablet 100 mg PO Q24H bupropion HCl 300 mg tablet extended release 24 hr 300 mg PO DAILY hydrocodone-acetaminophen 5-325 mg tablet 1 tablet PO PRN PRN (Reason: pain) clopidogrel 75 mg tablet 75 mg PO DAILY Eliquis 5 mg tablet 5 mg PO DAILY furosemide 40 mg tablet 40 mg PO DAILY isosorbide mononitrate 30 mg tablet extended release 24 hr 30 mg PO DAILY atorvastatin 80 mg tablet 80 mg PO QPM glimepiride 2 mg tablet 2 mg PO DAILY hydroxyzine HCl 25 mg tablet 25 mg PO DAILY loperamide 2 mg capsule 2 mg PO PRN albuterol sulfate 90 mcg/actuation HFA aerosol inhaler 2 puff INHALATION PRN Discontinued nifedipine 30 mg tablet extended release 24hr 30 mg PO DAILY Date of admission: 08/14/24 11:01 Primary Care Provider: Ron Booth Admitting Provider: Fatemeh Yuen Attending physician on admission: Fatemeh Yuen Condition: Stable
[2024-08-18 11:23] LABS: Glucose Point of Care 192 mg/dl (65-105)
== END 2024-08-18 13:17 | disposition home or self-care (01) | DRG 291 ==
LOC: ANHED 08:04 → ANHIMU 10:52 → ANHCPC 12:26 → ANHIMU 17:40
PROVIDERS: Nurse Practitioner; Physician Assistant; Admitting Provider Hospitalist; Emergency Provider Emergency Medicine; PCP Family Medicine; Visit Provider Internal Medicine
DX: I11.0 Hypertensive heart disease with heart failure (principal); I50.23 Acute on chronic systolic (congestive) heart failure; J96.02 Acute respiratory failure with hypercapnia; J96.21 Acute and chronic respiratory failure with hypoxia; J44.1 Chronic obstructive pulmonary disease with (acute) exacerbation; I48.0 Paroxysmal atrial fibrillation; I25.10 Atherosclerotic heart disease of native coronary artery without angina pectoris; E11.51 Type 2 diabetes mellitus with diabetic peripheral angiopathy without gangrene; G47.33 Obstructive sleep apnea (adult) (pediatric); Z20.822 Contact with and (suspected) exposure to COVID-19; I25.2 Old myocardial infarction; Z79.01 Long term (current) use of anticoagulants; Z79.02 Long term (current) use of antithrombotics/antiplatelets; Z99.81 Dependence on supplemental oxygen; Z95.5 Presence of coronary angioplasty implant and graft; Z95.820 Peripheral vascular angioplasty status with implants and grafts; Z87.891 Personal history of nicotine dependence
CPT/HCPCS: 36415; 36600; 71045; 80048; 80053; 80069; 82375; 82805; 82948; 83036; 83050; 83605; 83735; 83880; 84132; 85018; 85025; 87637; 93005; 93306; 94002; 94640; 96374; 96375; 97161; 97165; 99285; A9270; G0378; J1815; J1940; J3475; J3480; J7040; J7512